=== PATIENT | female | born 1950 | race Caucasian/White ===

== ENCOUNTER → 2016-04-18 | Outpatient (CLI) | payer BC ==
[~2016-04-18] MED LIST: NITR-5 PO; UNABLE
[2016-04-18 13:08] LABS: BLOOD UREA NITROGEN 18 mg/dl (7-18); BUN/CREATININE RATIO 17.9 (10-20); CALCIUM 9.3 mg/dl (8.5-10.1); CARBON DIOXIDE 24 mmol/L (21-32); CHLORIDE 105 mmol/L (98-107); CHOLESTEROL 107 mg/dl (0-200); GLUCOSE 136 mg/dl (70-99); POTASSIUM 3.7 mmol/L (3.5-5.1); SODIUM 142 mmol/L (136-145); TRIGLYCERIDES 106 mg/dl (0-150); VERY LOW DENSITY LIPOPROT CALC 21 mg/dl
[2016-04-18 13:13] LABS: CHOLESTEROL/HDL RATIO 2.3; HDL CHOLESTEROL 46 mg/dl; LDL CHOLESTEROL CALCULATED 40 mg/dl
[2016-04-18 13:42] LABS: ESTIMATED AVERAGE GLUCOSE 140 mg/dl; HA1C FLAG Normal (Normal)
--- NOTE | 2016-04-29 07:09 | CODING QUERY MEDICAL NECESSITY ---
CQSUPPORTING DIAGNOSIS NEEDED A supporting diagnosis is required for the test/procedure performed on this patient in order for us to be reimbursed by the patient's insurance. Please provide a supporting diagnosis for the following test/procedure listed below next to the test name along with your signature. *If there is no additional diagnosis for this patient that would support the following test/procedure please document that below next to the test/procedure. Test(s)/Procedure(s) that require a supporting diagnosis: DOS 04/18/16 VITAMIN D TEST Provider Signature: Date: Thank you Nina Raphael Health Information Management Once completed, please kindly fax back to [phone] For questions please call [phone]
== END | disposition home or self-care (01) ==
LOC: C.LABPVFM 08:40
PROVIDERS: ATTEND Nurse Practitioner
DX: E11.9 Type 2 diabetes mellitus without complications (principal); E87.5 Hyperkalemia; I10 Essential (primary) hypertension; M85.80 Other specified disorders of bone density and structure, unspecified site

== ENCOUNTER → 2016-04-21 | Outpatient (CLI) | payer BC ==
[2016-04-21 13:36] LABS: RATIO 11.4 mcg/mg (0-30.0)
== END | disposition home or self-care (01) ==
LOC: C.LABPVFM 14:58
PROVIDERS: ATTEND Nurse Practitioner
DX: E11.42 Type 2 diabetes mellitus with diabetic polyneuropathy (principal)

== ENCOUNTER → 2016-10-20 | Outpatient (CLI) | payer BC ==
[2016-10-20 13:23] LABS: BLOOD UREA NITROGEN 12 mg/dl (7-18); BUN/CREATININE RATIO 14.3 (10-20); CALCIUM 8.9 mg/dl (8.5-10.1); CARBON DIOXIDE 25 mmol/L (21-32); CHLORIDE 108 mmol/L (98-107); CHOLESTEROL 103 mg/dl (0-200); CREATININE 0.82 mg/dl (0.60-1.20); GLUCOSE 133 mg/dl (70-99); POTASSIUM 3.8 mmol/L (3.5-5.1); SODIUM 140 mmol/L (136-145); TRIGLYCERIDES 107 mg/dl (0-150); VERY LOW DENSITY LIPOPROT CALC 21 mg/dl
[2016-10-20 13:27] LABS: HDL CHOLESTEROL 51 mg/dl; LDL CHOLESTEROL CALCULATED 31 mg/dl
[2016-10-20 13:50] LABS: ESTIMATED AVERAGE GLUCOSE 131 mg/dl; HA1C FLAG Normal (Normal)
== END | disposition home or self-care (01) ==
LOC: C.LABPVFM 08:55
PROVIDERS: ATTEND Nurse Practitioner
DX: E78.5 Hyperlipidemia, unspecified (principal); I10 Essential (primary) hypertension; E11.9 Type 2 diabetes mellitus without complications

== ENCOUNTER → 2017-05-03 | Outpatient (CLI) | payer BC ==
[2017-05-03 12:56] LABS: ALBUMIN 3.5 gm/dl (3.4-5.0); ALT/SGPT 23 U/L (12-78); AST/SGOT 17 U/L (15-37); BLOOD UREA NITROGEN 20 mg/dl (7-18); CALCIUM 9.1 mg/dl (8.5-10.1); CARBON DIOXIDE 26 mmol/L (21-32); CREATININE 0.93 mg/dl (0.60-1.20); GLUCOSE 113 mg/dl (70-99); SODIUM 139 mmol/L (136-145)
[2017-05-03 13:02] LABS: ALKALINE PHOSPHATASE 91 U/L (45-117); CHOLESTEROL 104 mg/dl (0-200); LDL CHOLESTEROL CALCULATED 34 mg/dl
[2017-05-03 13:29] LABS: HEMOGLOBIN A1C 6.4 % (4.5-5.6)
== END | disposition home or self-care (01) ==
LOC: C.LABPVFM 10:47
PROVIDERS: ATTEND Family Medicine
DX: I10 Essential (primary) hypertension (principal); E78.5 Hyperlipidemia, unspecified; E11.69 Type 2 diabetes mellitus with other specified complication

== ENCOUNTER 2020-11-04 08:56 | Inpatient (IN) ==
[2020-11-04] MEDS ORDERED: IRBESARTAN 150 MG TAB PO STA (09:14)
[2020-11-04] MEDS ORDERED: METOPROLOL TARTRATE 100 MG TAB PO STA (09:14)
[2020-11-04] MEDS ORDERED: SODIUM CHLORIDE 0.9% 500 ML IV SCH (09:15)
--- NOTE | 2020-11-04 09:21 | Emergency Department Note ---
Impression & Plan Weakness, Dizziness, Dislocation of left shoulder joint, Left knee pain ED Provider Note NAME: ELENITA HERRERA AGE: 69 SEX: F : 1950 ARRIVES VIA: Ambulance INFORMANT: [Patient][nursing] ED PROVIDER(S): [Felice Martinez MD] CHIEF COMPLAINT: Weakness HISTORY OF PRESENT ILLNESS: The patient is a 69-year-old female who presents to the ER with weakness. She was seen in our ED 5 days ago and work-up showed a UTI. She is currently on Bactrim. A brain CT had been done with that visit and was essentially unremarkable. The patient presents today with continued weakness. Sometimes, she has a spinning sensation. Last night, she slept in her chair in the living room because she could not make it back to her bed. The patient had a pretty bad episode of weakness and dizziness just prior to arrival, it appears her family called the ambulance. The patient did fall a few weeks ago, no fall since then. The patient denies any cough or congestion or shortness of breath. No fever, vomiting, diarrhea, no chest or abdominal pain. She has no urinary complaints. She did not take her medications this morning. The patient is not vaccinated against COVID-19, no Covid exposures. REVIEW OF SYSTEMS: See HPI for pertinent positives and negatives. A total of ten systems were reviewed and were otherwise negative. PMHx/PSHx: See Below SOCIAL HISTORY: See Below. PHYSICAL EXAM: GENERAL: Patient is in no acute distress. HEENT: No acute trauma, normocephalic atraumatic, mucous membranes moist, no nasal congestion, no scleral icterus. NECK: No stridor, no adenopathy, no meningismus, trachea is midline. LUNGS: Clear to auscultation bilaterally, no wheeze, no rhonchi, breath sounds equal. HEART: Without murmurs gallops or rubs, regular rate and rhythm. ABDOMEN: Soft, nontender, bowel sounds positive, no hernias, no peritonitis. EXTREMITIES: No cyanosis. Mild bilateral pedal edema. She has minimal movement of her left arm with a left shoulder dislocation clinically. Movement of the left shoulder does cause pain. Her left knee is flexed some, she states this is baseline as she cannot completely straighten the knee. NEUROLOGIC: Oriented x 3, no acute motor or sensory deficits, no focal weakness. No speech slur, no cerebellar dysfunction. SKIN: No rash, no jaundice, no diaphoresis. DIFFERENTIAL DIAGNOSIS: Infection, dehydration, metabolic abnormality, hypo/hyperglycemia, COVID-19, electrolyte disturbance, anemia, hypoxia, cardiac sources, intracerebral event, toxicologic issues, stroke, TIA, as well as other pathologies. EMERGENCY DEPARTMENT COURSE/PROCEDURES: ECG: Indication was weakness. The ECG shows a normal sinus rhythm with a rate of 68. There is some baseline artifact. There is no ST elevation, no PVCs. The QTc is 431. Continuous Cardiac Monitoring: An order was placed for continuous cardiac monitoring. The monitor shows a rate of 60 with normal sinus rhythm. MEDICAL DECISION MAKING: There is no leukocytosis. A very mild anemia was noted. There was a normal platelet count. Renal panel testing does not show renal failure or significant electrolyte abnormality. Lactic acid level was not elevated making sepsis less likely. There was no concerning liver enzyme elevation. The patient appeared to be in a euthyroid state. ECG shows a sinus rhythm, no acute ischemia. Cardiac enzyme testing x1 is not consistent with acute cardiac injury. Urinalysis does not show any evidence for infection. Covid testing returned negative. Chest film shows some chronic change, there was no pneumonia or CHF. Left knee film showed arthritis, there was no evidence for fracture or dislocation. The patient presents with weakness. She is no longer able to get around in her home. She was in a chair overnight because she could not make it to her bedroom. She does have a left shoulder dislocation which has been present for at least a few months. She has chronic issues with her left knee. The patient was given IV saline, she received her typical doses of p.o. irbesartan, p.o. metoprolol. She was given oral Tylenol and eventually a dose of IV hydralazine. She received IV morphine and IV Zofran. The morphine was for her knee discomfort. I did speak with case management. They were unable to get her into any type of rehab center today. No beds were available. Given the profound weakness, given the lack of ability to function at home, a hospital stay was felt warranted. I did speak with the patient and case management. The on-call hospitalist has been consulted. Of note, I did speak with orthopedics. The shoulder dislocation does not need emergent intervention. Past Med/Surg History Medical History Diabetes mellitus type 2 in obese Hypertension Routine health maintenance Surgical History History of cholecystectomy History of tubal ligation Family History Father Prostate cancer Myocardial infarction Aunt Cancer x 2 colon Aunt Hodgkin lymphoma Denies family history of Ovarian cancer Breast cancer Colorectal cancer Social History Smoking Status: Former smoker Hx Alcohol Use: No Hx Substance Use: No Preferred Language: Finnish marital status: Current Living Situation: Spouse current occupational status: retired Feels Safe at Home: Yes Childhood Exposure to Second-Hand Smoke: No caffeine: Yes Dental Care, Regularly: No Physical Activity Frequency: Does not Exercise Seatbelt Use: always Sunscreen Use: No Allergies Allergies Allergy/AdvReac Type Severity Reaction Status Date / Time No Known Drug Allergies Allergy Verified 06/10/20 11:42 Home Meds Previous Rx's Medication Instructions Recorded atorvastatin 80 mg tablet 80 mg PO DAILY #90 tab 12/11/19 metoprolol tartrate 100 mg tablet 100 mg PO BID #180 tab 04/13/20 irbesartan 150 mg tablet 150 mg PO DAILY #90 tab 05/05/20 metformin 1,000 mg tablet 1,000 mg PO BID #180 tab 05/21/20 sulfamethoxazole 800 1 tab PO Q12H #14 tab 10/30/20 mg-trimethoprim 160 mg tablet (Bactrim DS) Results & Data (ED) Vital Signs Vital Signs - 24 hr 11/04/20 08:56 11/04/20 09:05 11/04/20 09:14 Temperature 36.4 C L Temperature Source Oral Pulse Rate - Lying Pulse Rate 69 68 71 Pulse Rate from SpO2 Sensor Respiratory Rate 16 16 17 Blood Pressure - Lying Blood Pressure 195/82 H 195/82 H Blood Pressure Mean 119 119 Pulse Oximetry 99 99 Oxygen Delivery Method Room Air Room Air Sepsis Recent Fever Within 48 Hours No Sepsis New/Unexplained Change in Mental Status No Sepsis Action Taken by Nursing No Action Required 11/04/20 09:30 11/04/20 10:02 11/04/20 10:10 Temperature Temperature Source Pulse Rate - Lying Pulse Rate 64 72 72 Pulse Rate from SpO2 Sensor 72 67 Respiratory Rate 14 17 15 Blood Pressure - Lying Blood Pressure 184/120 H Blood Pressure Mean 141 Pulse Oximetry 98 97 Oxygen Delivery Method Sepsis Recent Fever Within 48 Hours Sepsis New/Unexplained Change in Mental Status Sepsis Action Taken by Nursing 11/04/20 10:20 11/04/20 10:31 11/04/20 11:14 Temperature Temperature Source Pulse Rate - Lying Pulse Rate 73 74 63 Pulse Rate from SpO2 Sensor 72 73 Respiratory Rate 17 17 27 H Blood Pressure - Lying Blood Pressure 194/100 H 144/95 H Blood Pressure Mean 131 111 Pulse Oximetry 99 100 Oxygen Delivery Method Sepsis Recent Fever Within 48 Hours Sepsis New/Unexplained Change in Mental Status Sepsis Action Taken by Nursing 11/04/20 11:31 11/04/20 11:44 11/04/20 12:02 Temperature Temperature Source Pulse Rate - Lying 63 Pulse Rate 64 57 L Pulse Rate from SpO2 Sensor Respiratory Rate 18 25 H Blood Pressure - Lying 144/95 H Blood Pressure 176/113 H Blood Pressure Mean 134 Pulse Oximetry 100 Oxygen Delivery Method Sepsis Recent Fever Within 48 Hours Sepsis New/Unexplained Change in Mental Status Sepsis Action Taken by Nursing 11/04/20 12:10 11/04/20 12:20 11/04/20 12:30 Temperature Temperature Source Pulse Rate - Lying Pulse Rate 58 L 58 L 60 Pulse Rate from SpO2 Sensor Respiratory Rate 19 22 18 Blood Pressure - Lying Blood Pressure Blood Pressure Mean Pulse Oximetry Oxygen Delivery Method Sepsis Recent Fever Within 48 Hours Sepsis New/Unexplained Change in Mental Status Sepsis Action Taken by Nursing 11/04/20 12:40 11/04/20 13:03 11/04/20 13:10 Temperature Temperature Source Pulse Rate - Lying Pulse Rate 58 L 61 63 Pulse Rate from SpO2 Sensor 60 63 Respiratory Rate 20 16 22 Blood Pressure - Lying Blood Pressure Blood Pressure Mean Pulse Oximetry 99 99 Oxygen Delivery Method Sepsis Recent Fever Within 48 Hours Sepsis New/Unexplained Change in Mental Status Sepsis Action Taken by Nursing 11/04/20 13:20 11/04/20 13:30 11/04/20 13:40 Temperature Temperature Source Pulse Rate - Lying Pulse Rate 64 65 63 Pulse Rate from SpO2 Sensor 64 65 Respiratory Rate 25 H 25 H 25 H Blood Pressure - Lying Blood Pressure Blood Pressure Mean Pulse Oximetry 100 100 Oxygen Delivery Method Sepsis Recent Fever Within 48 Hours Sepsis New/Unexplained Change in Mental Status Sepsis Action Taken by Nursing 11/04/20 13:50 11/04/20 14:00 11/04/20 14:10 Temperature Temperature Source Pulse Rate - Lying Pulse Rate 64 62 57 L Pulse Rate from SpO2 Sensor 64 61 Respiratory Rate 25 H 21 18 Blood Pressure - Lying Blood Pressure Blood Pressure Mean Pulse Oximetry 95 100 Oxygen Delivery Method Sepsis Recent Fever Within 48 Hours Sepsis New/Unexplained Change in Mental Status Sepsis Action Taken by Nursing 11/04/20 14:20 11/04/20 14:30 11/04/20 15:01 Temperature Temperature Source Pulse Rate - Lying Pulse Rate 61 60 67 Pulse Rate from SpO2 Sensor Respiratory Rate 13 13 19 Blood Pressure - Lying Blood Pressure 154/63 H 153/70 H Blood Pressure Mean 93 97 Pulse Oximetry Oxygen Delivery Method Sepsis Recent Fever Within 48 Hours Sepsis New/Unexplained Change in Mental Status Sepsis Action Taken by Retirement Medications Current Medication List: was personally reviewed by me Laboratory Data Attestation: I reviewed the patient's lab results. Result diagrams: 11/04/20 09:47 11/04/20 09:47 Lab Results 11/04/20 11/04/20 11/04/20 Range/Units 09:29 09:29 09:47 WBC 5.02 (4.8-10.8) K/uL RBC 3.52 L (4.2-5.4) M/uL Hgb 11.4 L (12.0-16.0) g/dL Hct 33.8 L (37-47) % MCV 96.0 (80-100) fL MCH 32.4 (25-34) pg MCHC 33.7 (32-36) g/dL RDW Std Deviation 46.7 H (36.4-46.3) fL RDW Coeff of Lakhwinder 13.5 (11.5-14.5) % Plt Count 173 (130-400) K/uL MPV 11.0 H (7.4-10.4) fL Immature Gran % (Auto) 0.2 % Neut % (Auto) 66.7 % Lymph % (Auto) 22.3 % [place] % (Auto) 7.4 % Eos % (Auto) 2.8 % Baso % (Auto) 0.6 % Neut # (Auto) 3.35 (1.4-6.5) K/uL Lymph # (Auto) 1.12 L (1.2-3.4) K/uL [place] # (Auto) 0.37 (0.11-0.59) K/uL Eos # (Auto) 0.14 (0-0.5) K/uL Baso # (Auto) 0.03 (0-0.2) K/uL Immature Gran # (Auto) 0.01 (0.00-0.02) K/uL Sodium (136-145) mmol/L Potassium (3.5-5.1) mmol/L Chloride (98-107) mmol/L Carbon Dioxide (21-32) mmol/L Anion Gap (3-11) BUN (7-18) mg/dl Creatinine (0.6-1.2) mg/dl Est Cr Clr Drug Dosing ml/min Est GFR ( Amer) ml/min Est GFR (Non-Af Amer) ml/min BUN/Creatinine Ratio (10-20) Glucose (70-99) mg/dl Lactate (0.4-2.0) mmol/L Calcium (8.5-10.1) mg/dl Phosphorus (2.5-4.9) mg/dl Magnesium (1.8-2.4) mg/dl Total Bilirubin (0.2-1) mg/dl AST (15-37) U/L ALT (12-78) U/L Alkaline Phosphatase (45-117) U/L Troponin I (0-0.045) ng/ml Total Protein (6.4-8.2) gm/dl Albumin (3.4-5.0) gm/dl Globulin (2.5-4.0) gm/dl Albumin/Globulin Ratio (0.9-2) TSH (0.300-4.500) uIu/ml Urine Color Urine Appearance (Clear) Urine pH (4.5-7.5) Ur Specific [place] (1.000-1.030) Urine Protein (Negative) Urine Glucose (UA) (Negative) Urine Ketones (Negative) Urine Blood (Negative) Urine Nitrite (Negative) Urine Bilirubin (Negative) Urine Urobilinogen (Negative) Ur Leukocyte Esterase (Negative) COVID-19 Eval Order Covid19 at [facility] SARS-CoV-2 (PCR) NEGATIVE (Negative) 11/04/20 11/04/20 11/04/20 Range/Units 09:47 09:47 10:14 WBC (4.8-10.8) K/uL RBC (4.2-5.4) M/uL Hgb (12.0-16.0) g/dL Hct (37-47) % MCV (80-100) fL MCH (25-34) pg MCHC (32-36) g/dL RDW Std Deviation (36.4-46.3) fL RDW Coeff of Lakhwinder (11.5-14.5) % Plt Count (130-400) K/uL MPV (7.4-10.4) fL Immature Gran % (Auto) % Neut % (Auto) % Lymph % (Auto) % [place] % (Auto) % Eos % (Auto) % Baso % (Auto) % Neut # (Auto) (1.4-6.5) K/uL Lymph # (Auto) (1.2-3.4) K/uL [place] # (Auto) (0.11-0.59) K/uL Eos # (Auto) (0-0.5) K/uL Baso # (Auto) (0-0.2) K/uL Immature Gran # (Auto) (0.00-0.02) K/uL Sodium 142 (136-145) mmol/L Potassium 4.2 (3.5-5.1) mmol/L Chloride 111 H (98-107) mmol/L Carbon Dioxide 23 (21-32) mmol/L Anion Gap 8.0 (3-11) BUN 23 H (7-18) mg/dl Creatinine 1.15 (0.6-1.2) mg/dl Est Cr Clr Drug Dosing 59.3 ml/min Est GFR ( Amer) 55.4 ml/min Est GFR (Non-Af Amer) 47.8 ml/min BUN/Creatinine Ratio 19.7 (10-20) Glucose 160 H (70-99) mg/dl Lactate 1.3 (0.4-2.0) mmol/L Calcium 8.9 (8.5-10.1) mg/dl Phosphorus 3.2 (2.5-4.9) mg/dl Magnesium 2.1 (1.8-2.4) mg/dl Total Bilirubin 0.6 (0.2-1) mg/dl AST 16 (15-37) U/L ALT 19 (12-78) U/L Alkaline Phosphatase 125 H (45-117) U/L Troponin I < 0.015 (0-0.045) ng/ml Total Protein 6.9 (6.4-8.2) gm/dl Albumin 3.5 (3.4-5.0) gm/dl Globulin 3.4 (2.5-4.0) gm/dl Albumin/Globulin Ratio 1.0 (0.9-2) TSH 1.620 (0.300-4.500) uIu/ml Urine Color Yellow Urine Appearance Clear (Clear) Urine pH 6.0 (4.5-7.5) Ur Specific [place] 1.022 (1.000-1.030) Urine Protein Negative (Negative) Urine Glucose (UA) Negative (Negative) Urine Ketones Negative (Negative) Urine Blood Negative (Negative) Urine Nitrite Negative (Negative) Urine Bilirubin Negative (Negative) Urine Urobilinogen Negative (Negative) Ur Leukocyte Esterase Negative (Negative) COVID-19 Eval Order SARS-CoV-2 (PCR) (Negative) Administered Medications Morphine Sulfate (Morphine Sulfate 4 Mg/Ml 1 Ml Carp\Vial) 4 mg IV Q15M PRN PRN Reason: Pain Stop: 11/18/20 13:34 Last Admin: 11/04/20 13:46 Dose: 4 mg Documented by: [id number] Discontinued Medications Acetaminophen (Acetaminophen 500 Mg Tab) 1,000 mg PO NOW STA Stop: 11/04/20 10:39 Last Admin: 11/04/20 10:45 Dose: 1,000 mg Documented by: [id number] Hydralazine HCl (Hydralazine Hcl 20 Mg/Ml Vial) 10 mg IV NOW STA Stop: 11/04/20 12:15 Last Admin: 11/04/20 12:43 Dose: 10 mg Documented by: [id number] Sodium Chloride (Nss) 500 mls @ 999 mls/hr IV .Q31M SARINA Stop: 11/04/20 09:45 Last Infusion: 11/04/20 10:27 Dose: 0 mls/hr Documented by: [id number] Admin: 11/04/20 09:56 Dose: 999 mls/hr Documented by: [id number] Irbesartan (Irbesartan 150 Mg Tab) 150 mg PO NOW STA Stop: 11/04/20 09:15 Last Admin: 11/04/20 10:24 Dose: 150 mg Documented by: [id number] Metoprolol Tartrate (Metoprolol Tartrate 100 Mg Tab) 100 mg PO NOW STA Stop: 11/04/20 09:15 Last Admin: 11/04/20 10:23 Dose: 100 mg Documented by: [id number] Ondansetron HCl (Ondansetron Inj 2 Mg/Ml 2 Ml Vial) 4 mg IV NOW STA Stop: 11/04/20 13:36 Last Admin: 11/04/20 13:46 Dose: 4 mg Documented by: [id number] Imaging Data Radiologist's Impression: Chest X-Ray 11/04/20 09:14 SINGLE VIEW CHEST CLINICAL HISTORY: Generalized weakness. FINDINGS: An AP, portable, upright chest radiograph is compared to study dated 10/30/2020 and correlated with chest CT dated 02/20/2006. The heart is enlarged. The pulmonary vasculature is noncongested. Chronic interstitial thickening is similar to previous. The lungs and pleural spaces are clear. No pneumothorax is seen. The skeletal structures are osteopenic. The bony thorax is grossly intact. Advanced arthritic change is noted in the shoulders. IMPRESSION: Cardiomegaly with no active disease in the chest. ACT 112: Negative or not required by law. Electronically signed by: Felice Maldonado M.D. 11/04/2020 9:44 AM Knee X-Ray 11/04/20 14:06 XR knee LT 1 or 2V routine CLINICAL HISTORY: progressive pain recent fall COMPARISON: None FINDINGS: There is mild valgus deformity of the left knee. No acute fracture is noted. There is no significant joint effusion. Marked tricompartmental ost eoarthritis of the left knee is noted with joint space narrowing and osteophytosis, most pronounced within the medial and patellofemoral compartments. IMPRESSION: 1. No acute fracture or joint effusion of the left knee. 2. Severe tricompartmental osteoarthritis of the left knee. ACT 112: Negative or not required by law. Electronically signed by: Braydon Gregory M.D. 11/04/2020 2:56 PM Discharge Plan Visit Data Chief Complaint: Weakness ED Provider: Felice Martinez Discharge Problem: Weakness, Dizziness, Dislocation of left shoulder joint, Left knee pain Patient Disposition: Admitted As Inpatient Condition: Fair Forms Stand Alone Forms: [facility] [place] [facility] [employer] Prescriptions Prescriptions: No Action atorvastatin 80 mg tablet 80 mg PO DAILY Qty: 90 RF: 1 metoprolol tartrate 100 mg tablet 100 mg PO BID Qty: 180 RF: 1 irbesartan 150 mg tablet 150 mg PO DAILY Qty: 90 RF: 1 metformin 1,000 mg tablet 1,000 mg PO BID Qty: 180 RF: 1 sulfamethoxazole-trimethoprim [Bactrim DS] 800-160 mg tablet 1 tab PO Q12H Qty: 14 RF: 0 Referrals Referrals: PCP,NO [Primary Care Provider] -
--- NOTE | 2020-11-04 09:46 | XRay Report ---
SINGLE VIEW CHEST CLINICAL HISTORY: Generalized weakness. FINDINGS: An AP, portable, upright chest radiograph is compared to study dated 10/30/2020 and correlat ed with chest CT dated 02/20/2006. The heart is enlarged. The pulmonary vasculature is noncongested. Ch ronic interstitial thickening is similar to previous. The lungs and pleural spaces are clear. No pneu mothorax is seen. The skeletal structures are osteopenic. The bony thorax is grossly intact. Advanced arthritic change is noted in the shoulders. IMPRESSION: Cardiomegaly with no active disease in the chest. ACT 112: Negative or not required by law. Electronically signed by: Felice Maldonado M.D. 11/04/2020 9:44 AM
[2020-11-04 09:59] LABS: Basophils # (auto) 0.03 K/uL (0-0.2); Basophils % (auto) 0.6 %; Eosinophils # (auto) 0.14 K/uL (0-0.5); Eosinophils % (auto) 2.8 %; Hematocrit (blood only) 33.8 % (37-47); Hemoglobin 11.4 g/dL (12.0-16.0); Immature Granulocytes # (auto) 0.01 K/uL (0.00-0.02); Immature Granulocytes % (auto) 0.2 %; Lymphocytes # (auto) 1.12 K/uL (1.2-3.4); Lymphocytes % (auto) 22.3 %; Mean Corpuscular Hemoglobin 32.4 pg (25-34); Mean Corpuscular Hgb Conc 33.7 g/dL (32-36); Monocytes # (auto) 0.37 K/uL (0.11-0.59); Monocytes % (auto) 7.4 %; Neutrophils # (auto) 3.35 K/uL (1.4-6.5); Neutrophils % (auto) 66.7 %; Platelet Count 173 K/uL (130-400); RDW Coefficient of Variation 13.5 % (11.5-14.5); RDW Standard Deviation 46.7 fL (36.4-46.3); Red Blood Count 3.52 M/uL (4.2-5.4); White Blood Count 5.02 K/uL (4.8-10.8)
[2020-11-04 10:22] LABS: Albumin Level 3.5 gm/dl (3.4-5.0); Aspartate Aminotransferase 16 U/L (15-37); BUN Creatinine Ratio 19.7 (10-20); Blood Urea Nitrogen 23 mg/dl (7-18); Calcium 8.9 mg/dl (8.5-10.1); Carbon Dioxide 23 mmol/L (21-32); Chloride 111 mmol/L (98-107); Creatinine Clr Calc Pharmacy 59.3 ml/min; Est GFR (African American) 55.4 ml/min; Est GFR (Non-African American) 47.8 ml/min; Glucose 160 mg/dl (70-99); Magnesium 2.1 mg/dl (1.8-2.4); Potassium 4.2 mmol/L (3.5-5.1); Sodium 142 mmol/L (136-145)
[2020-11-04 10:33] LABS: Alanine Aminotransferase 19 U/L (12-78); Alkaline Phosphatase 125 U/L (45-117); Bilirubin,Total 0.6 mg/dl (0.2-1); Globulin 3.4 gm/dl (2.5-4.0); Phosphorus 3.2 mg/dl (2.5-4.9); Total Protein 6.9 gm/dl (6.4-8.2); Troponin I < 0.015 ng/ml (0-0.045)
[2020-11-04 10:34] LABS: Appearance Urine Clear (Clear); Bilirubin Urine Negative (Negative); Blood Urine Negative (Negative); Color Urine Yellow; Glucose Urine UA Negative (Negative); Ketones Urine Negative (Negative); Leukocyte Esterase Urine Negative (Negative); Nitrite Urine Negative (Negative); Protein Urine Negative (Negative); Specific Gravity Urine 1.022 (1.000-1.030); Urobilinogen Urine Negative (Negative)
[2020-11-04] MEDS ORDERED: ACETAMINOPHEN 500 MG TAB PO STA (10:38)
[2020-11-04] MEDS ORDERED: hydrALAZINE HCL 20 MG/ML VIAL IV STA (12:14)
[2020-11-04] MEDS ORDERED: ONDANSETRON INJ 2 MG/ML 2 ML VIAL IV STA (13:35)
[2020-11-04] MEDS ORDERED: MoRPHine SULFATE 4 MG/ML 1 ML CARP\\VIAL IV PRN (13:35)
--- NOTE | 2020-11-04 13:42 | History & Physical Report ---
Date of Service November 04, 2020 Assessment & Plan (1) Dizziness: Plan: Patient with postural dizziness and decreased strength and ambulation. Currently no obvious metabolic sources. Certainly could be medication side effect from her Bactrim. This will be stopped. CT scan of her brain is unremarkable from her visit on October 30 this was not repeated today she has no focal neurological signs Emergency department a TSH is normal lactic acid unremarkable troponins unremarkable electrolytes are in good repair EKG shows normal sinus rhythm any acute ST or T wave changes chest x-ray is unremarkable We will check an a.m. cortisol and a Lyme titer We will have PT OT evaluation survey cultures for causes of metabolic encephalopathy which is not apparently present currently (2) UTI (urinary tract infection): Plan: Treated for 5 days with Bactrim for pansensitive E. coli we will stop this medication in case her dizziness is a side effect of the Bactrim (3) Diabetes mellitus type 2 in obese: Plan: Patient typically takes Metformin we will check an A1c we will continue her Metformin and offer her a carbohydrate conservative diet (4) Hypertension: Plan: Currently blood pressure is elevated we will check orthostatics in the morning, we will continue her metoprolol however reduce dose slightly because of bradycardia but continue irbesartan or substitute. She is also on atorvastatin for secondary risk prevention she will be offered hydralazine as needed and may need attention to her antihypertensive regiment (5) DVT prophylaxis: Plan: SCDs and early ambulation Patient is a full code History of Present Illness Primary Care Provider: NO PCP 69-year-old female brought into the ED with progressive weakness at home. She was seen in emergency department approximately 5 days ago treated for urinary tract infection with Bactrim. She represents with continued weakness unable to get out of chair plus minus some vertigo symptoms. Initially the family had wished for her to have rehab evaluation. However she is found to be too weak and also has a looks to be chronically dislocated left shoulder. Her urinalysis today shows negative nitrates negative leukocyte esterase, her urine did grow E. coli which is pansensitive on October 30. Patient describes her dizziness as a presyncopal feeling definitely not vertiginous feeling. However it has been happening at rest when she is sitting still not with position changes. She has had this presyncopal feeling in her youth. Of note she is slightly bradycardic with her beta-jacob and this may be related to that. We are reducing doses and checking orthostatics in the morning Allergies Allergy/AdvReac Type Severity Reaction Status Date / Time No Known Drug Allergies Allergy Verified 06/10/20 11:42 Home Medications Medication Instructions Recorded Confirmed Type atorvastatin 80 mg tablet 80 mg PO DAILY #90 tab 12/11/19 11/04/20 Rx metoprolol tartrate 100 mg tablet 100 mg PO BID #180 tab 04/13/20 11/04/20 Rx irbesartan 150 mg tablet 150 mg PO DAILY #90 tab 05/05/20 11/04/20 Rx metformin 1,000 mg tablet 1,000 mg PO BID #180 tab 05/21/20 11/04/20 Rx sulfamethoxazole 800 1 tab PO Q12H #14 tab 10/30/20 11/04/20 Rx mg-trimethoprim 160 mg tablet (Bactrim DS) Past Med/Surg History Medical History (Updated 11/04/20 @ 13:38 by Tres Catalan MD) Diabetes mellitus type 2 in obese Hypertension Routine health maintenance Surgical History History of cholecystectomy History of tubal ligation Family History Father Prostate cancer Myocardial infarction Aunt Cancer x 2 colon Aunt Hodgkin lymphoma Denies family history of Ovarian cancer Breast cancer Colorectal cancer Social History Smoking Status: Former smoker Hx Alcohol Use: No Hx Substance Use: No Preferred Language: Scottish marital status: Current Living Situation: Spouse current occupational status: retired Feels Safe at Home: Yes Childhood Exposure to Second-Hand Smoke: No caffeine: Yes Dental Care, Regularly: No Physical Activity Frequency: Does not Exercise Seatbelt Use: always Sunscreen Use: No Review of Systems Review of Systems: Mild distress and fatigue no headache, no visual changes no speech or swallowing issues no chest pain, pressure or palpitations no shortness of breath, cough or wheezes no abdominal pain, nausea or vomiting, diarrhea or constipation no dysuria, hematuria or frequency Patient has left knee pain more than right been progress over the last few days. She also some left shoulder pain which began after a fall 2 to 3 weeks ago. She is noted to have dislocated shoulder on admission chest x-ray no back pain, CVA tenderness or radicular pain no bruising, bleeding or rashes no focal signs of weakness or numbness or altered sensation no complaints of anxiety or depression.. Physical Exam Physical Exam: The patient appeared well nourished and normally developed. Vital signs as documented. Head exam is normocephalic atraumatic Neck is without JVD, thyromegaly, or carotid bruits. Lungs are clear to auscultation, no focal loss of breath sounds Cardiac exam, Rhythm is regular.. No murmurs, rubs or gallops. Abdominal exam reveals normal bowel sounds, soft non tender, no masses Patient has crepitance in her left shoulder however I can externally rotated and internally rotated she does have some pain when she lifts it above 90 degrees her knees do not have any effusions on them there are small abrasions. Extremities are nonedematous and both pedal pulses are present Neurologic exam is alert and oriented, no focal loss of strength or sensation she can lift her legs off the bed but she is very weak this may have to do with her morbid obesity BMI 41 Skin is without bruises or rashes Psychologically is without concerns for anxiety or depression Results & Data Results & Data ([facility]) Vital Signs (Past 12 Hours) Vital Signs Temp Pulse Resp BP Pulse Ox 11/04/20 12:30 60 18 11/04/20 12:20 58 L 22 11/04/20 12:10 58 L 19 11/04/20 12:02 57 L 25 H 11/04/20 11:44 100 11/04/20 11:31 64 18 176/113 H 11/04/20 11:14 63 27 H 144/95 H 11/04/20 10:31 74 17 194/100 H 100 11/04/20 10:20 73 17 99 11/04/20 10:10 72 15 97 11/04/20 10:02 72 17 98 11/04/20 09:30 64 14 184/120 H 11/04/20 09:14 71 17 99 11/04/20 09:05 68 16 195/82 H 11/04/20 08:56 97.5 F L 69 16 195/82 H 99 PG Care Time/CCT Total # of Minutes Spent Total Time Spent with Patient: Total time spent is greater than 50% in coordination of care (as documented) at patient's floor/unit and/or counseling patient: Coding Level of Care Code INT OBSERVATION CARE 50M LVL 2 Diagnoses Dizziness R42 UTI (urinary tract infection) N39.0 Diabetes mellitus type 2 in obese E11.69; E66.9 Hypertension I10 DVT prophylaxis Z29.9
--- NOTE | 2020-11-04 14:57 | XRay Report ---
XR knee LT 1 or 2V routine CLINICAL HISTORY: progressive pain recent fall COMPARISON: None FINDINGS: There is mild valgus deformity of the left knee. No acute fracture is noted. There is no s ignificant joint effusion. Marked tricompartmental osteoarthritis of the left knee is noted with join t space narrowing and osteophytosis, most pronounced within the medial and patellofemoral compartment s. IMPRESSION: 1. No acute fracture or joint effusion of the left knee. 2. Severe tricompartmental osteoarthritis of the left knee. ACT 112: Negative or not required by law. Electronically signed by: Braydon Gregory M.D. 11/04/2020 2:56 PM
--- NOTE | 2020-11-04 15:53 | Electrocardiogram Report ---
Test Reason : Blood Pressure : / mmHG Vent. Rate : 068 BPM Atrial Rate : 068 BPM P-R Int : 176 ms QRS Dur : 088 ms QT Int : 406 ms P-R-T Axes : 047 -03 022 degrees QTc Int : 431 ms Normal sinus rhythm Normal ECG When compared with ECG of 30-OCT-2020 12:14, Premature atrial complexes are no longer Present Confirmed by Shahid Schaffer ([id number]) on 11/04/2020 3:52:34 PM Referred By: REFERRED SELF Confirmed By:Shahid Schaffer
[2020-11-04] MEDS ORDERED: GLUCOSE 10 TABS/TUBE PO PRN (17:28)
[2020-11-04] MEDS ORDERED: ONDANSETRON INJ 2 MG/ML 2 ML VIAL IV PRN (17:28)
[2020-11-04] MEDS ORDERED: DEXTROSE 50% 50 ML SYRINGE IV PRN (17:28)
[2020-11-04] MEDS ORDERED: CARBOHYDRATES FOR HYPOGLYCEMIA PO PRN (17:28)
[2020-11-04] MEDS ORDERED: hydrALAZINE HCL 20 MG/ML VIAL IV PRN (17:28)
[2020-11-04] MEDS ORDERED: GLUCOSE 40% GEL 15 GM TUBE PO PRN (17:28)
[2020-11-04] MEDS ORDERED: GLUCAGON FOR INJ 1 MG VIAL SQ PRN (17:28)
[2020-11-04] MEDS ORDERED: ALUMINUM/MAGNESIUM SUSP 30 ML UDC PO PRN (17:28)
[2020-11-04] MEDS ORDERED: hydrALAZINE HCL 20 MG/ML VIAL ONE (17:32)
[2020-11-04] MEDS ORDERED: LORazepam 0.5 MG/1 ML VIAL IV PRN (17:59)
[2020-11-04] MEDS ORDERED: LORazepam 2 MG/ML VIAL (IM USE) IM STA (18:04)
[2020-11-04] MEDS: INSULIN ASPART 100 UNITS/ML 3 ML PEN SC SCH ×2 (20:19→21:59)
[2020-11-04] MEDS: metFORMIN HCL 500 MG TAB PO SCH (20:20)
[2020-11-04] MEDS ORDERED: MICONAZOLE NITRATE POWDER 43 GM EXT PRN (20:21)
[2020-11-04] MEDS: DICLOFENAC SOD 1% GEL 100 GM TUBE EXT SCH (22:00)
[2020-11-04] MEDS: METOPROLOL TARTRATE 50 MG TAB PO SCH (22:01)
[2020-11-05] MEDS: IRBESARTAN 150 MG TAB PO SCH (07:49)
[2020-11-05] MEDS: METOPROLOL TARTRATE 50 MG TAB PO SCH ×2 (07:49→19:45)
[2020-11-05] MEDS: metFORMIN HCL 500 MG TAB PO SCH ×2 (07:49→17:15)
[2020-11-05] MEDS: ATORVASTATIN 40 MG TAB PO SCH (07:49)
[2020-11-05] MEDS: DICLOFENAC SOD 1% GEL 100 GM TUBE EXT SCH ×2 (07:52→19:46)
[2020-11-05 07:58] LABS: Estimated Average Glucose 137 mg/dl; Hemoglobin A1C 6.4 % (4.5-5.6)
[2020-11-05 08:08] LABS: BUN Creatinine Ratio 19.4 (10-20); Calcium 9.1 mg/dl (8.5-10.1); Creatinine Clr Calc Pharmacy 70.4 ml/min; Est GFR (African American) 69.8 ml/min; Est GFR (Non-African American) 60.3 ml/min
[2020-11-05 08:28] LABS: Lyme Ab IgG w/WB Rflx Negative (Negative); Lyme Ab IgM w/WB Rflx Negative (Negative)
[2020-11-05] MEDS: INSULIN ASPART 100 UNITS/ML 3 ML PEN SC SCH ×4 (09:22→19:44)
[2020-11-05] MEDS: LORazepam 0.5 MG TAB PO PRN (19:45)
--- NOTE | 2020-11-05 20:56 | Hospitalist Progress Note ---
Date of Service November 05, 2020 Assessment & Plan (1) Dizziness: Plan: Patient with postural dizziness and decreased strength and ambulation. Currently no obvious metabolic sources. Certainly could be medication side effect from her Bactrim. This will be stopped. CT scan of her brain is unremarkable from her visit on October 30 this was not repeated today she has no focal neurological signs Emergency department a TSH is normal lactic acid unremarkable troponins unremarkable electrolytes are in good repair EKG shows normal sinus rhythm any acute ST or T wave changes chest x-ray is unremarkable We will check an a.m. cortisol and a Lyme titer We will have PT OT evaluation survey cultures for causes of metabolic encephalopathy which is not apparently present currently Patient appears less dizzy today, however she is confused. This may be a remnant of metabolic encephalopathy as she had a UTI. will continue to monitor (2) UTI (urinary tract infection): Plan: Treated for 5 days with Bactrim for pansensitive E. coli we will stop this medication in case her dizziness is a side effect of the Bactrim (3) Diabetes mellitus type 2 in obese: Plan: Patient typically takes Metformin we will check an A1c we will continue her Metformin and offer her a carbohydrate conservative diet (4) Hypertension: Plan: Currently blood pressure is elevated we will check orthostatics in the morning, we will continue her metoprolol however reduce dose slightly because of bradycardia but continue irbesartan or substitute. She is also on atorvastatin for secondary risk prevention she will be offered hydralazine as needed and may need attention to her antihypertensive regiment (5) DVT prophylaxis: Plan: SCDs and early ambulation Patient is a full code Admission and Anticipated Discharge Date Admission Date: November 05, 2020 Subjective Patient appears to be confused. Patient reports that she remains dizzy, however, it is not as severe as yesterday. Review of Systems Review of Systems: All systems reviewed & are unremarkable except as noted in HPI & below Physical Exam Physical Exam: The patient appeared well nourished and normally developed. Vital signs as documented. Head exam is normocephalic atraumatic Neck is without JVD, thyromegaly, or carotid bruits. Lungs are clear to auscultation, no focal loss of breath sounds Cardiac exam, Rhythm is regular.. No murmurs, rubs or gallops. Abdominal exam reveals normal bowel sounds, soft non tender, no masses Patient has crepitance in her left shoulder however I can externally rotated and internally rotated she does have some pain when she lifts it above 90 degrees her knees do not have any effusions on them there are small abrasions. Extremities are nonedematous and both pedal pulses are present Neurologic exam is alert and oriented, no focal loss of strength or sensation she can lift her legs off the bed but she is very weak this may have to do with her morbid obesity BMI 41 Skin is without bruises or rashes Psychologically is without concerns for anxiety or depression Results & Data Results & Data ([facility]) Vital Signs (Past 12 Hours) Vital Signs Temp Pulse Resp BP BP Pulse Ox 11/05/20 19:08 36.9 C 76 20 180/94 H 97 11/05/20 14:57 37.3 C 82 20 165/76 H 95 11/05/20 10:56 36.8 C 64 18 159/71 H 95 PG Care Time/CCT Total # of Minutes Spent Total Time Spent with Patient: Total time spent is greater than 50% in coordination of care (as documented) at patient's floor/unit and/or counseling patient: Coding Level of Care Code 74924 Subseq Hosp Care Lvl 2 Diagnoses Dizziness R42 UTI (urinary tract infection) N39.0 Diabetes mellitus type 2 in obese E11.69; E66.9 Hypertension I10 DVT prophylaxis Z29.9
[2020-11-05] MEDS ORDERED: LORazepam 0.5 MG/1 ML VIAL IV STA (23:48)
[2020-11-05] MEDS ORDERED: HALOPERIDOL LACTATE 5 MG/ML 1 ML VIAL IM STA (23:49)
--- NOTE | 2020-11-06 00:12 | Communication Note ---
Date of Service: November 06, 2020 Subjective: Nursing notified me that the patient was aggressive with staff, agitated and confused. I talked to the patient attempted to orient her, she was attempting to get out of her bed. Objective: General: not oriented to place or time A/P: 69 yo F becoming progressively more aggressive and trying to get out of her bed putting herself at risk of fall with prior episode one night prior of aggressive behavior in the ER. - ordered 0.5 mg Ativan in a addition to PRN doses - added 2.5 mg IM Haldol - continue to monitor overnight
[2020-11-06] MEDS: METOPROLOL TARTRATE 50 MG TAB PO SCH ×2 (07:53→21:53)
[2020-11-06] MEDS: metFORMIN HCL 500 MG TAB PO SCH ×2 (07:53→16:28)
[2020-11-06] MEDS: ATORVASTATIN 40 MG TAB PO SCH (07:53)
[2020-11-06] MEDS: IRBESARTAN 150 MG TAB PO SCH (07:53)
[2020-11-06] MEDS: INSULIN ASPART 100 UNITS/ML 3 ML PEN SC SCH ×4 (07:58→21:54)
[2020-11-06] MEDS: DICLOFENAC SOD 1% GEL 100 GM TUBE EXT SCH ×2 (07:58→21:53)
[2020-11-06 08:27] LABS: Hemoglobin 12.7 g/dL (12.0-16.0); Mean Corpuscular Hemoglobin 32.9 pg (25-34); Mean Corpuscular Hgb Conc 33.4 g/dL (32-36); Mean Corpuscular Volume 98.4 fL (80-100); Mean Platelet Volume 11.6 fL (7.4-10.4); Platelet Count 205 K/uL (130-400); RDW Coefficient of Variation 13.4 % (11.5-14.5); Red Blood Count 3.86 M/uL (4.2-5.4); White Blood Count 9.34 K/uL (4.8-10.8)
[2020-11-06 08:57] LABS: BUN Creatinine Ratio 17.2 (10-20); Calcium 9.3 mg/dl (8.5-10.1); Creatinine Clr Calc Pharmacy 64.2 ml/min; Est GFR (African American) 61.9 ml/min; Est GFR (Non-African American) 53.4 ml/min; Magnesium 1.5 mg/dl (1.8-2.4); Potassium 3.6 mmol/L (3.5-5.1)
[2020-11-06] MEDS ORDERED: amLODIPine BESYLATE 5 MG TAB PO ONE (16:00)
[2020-11-06] MEDS ORDERED: OLANZAPINE 2.5 MG TAB PO ONE (18:00)
--- NOTE | 2020-11-06 20:42 | Hospitalist Progress Note ---
Date of Service November 06, 2020 Assessment & Plan (1) Dizziness: Plan: Patient with postural dizziness and decreased strength and ambulation. Currently no obvious metabolic sources. Certainly could be medication side effect from her Bactrim. This will be stopped. CT scan of her brain is unremarkable from her visit on October 30 this was not repeated today she has no focal neurological signs Emergency department a TSH is normal lactic acid unremarkable troponins unremarkable electrolytes are in good repair EKG shows normal sinus rhythm any acute ST or T wave changes chest x-ray is unremarkable We will check an a.m. cortisol and a Lyme titer We will have PT OT evaluation survey cultures for causes of metabolic encephalopathy which is not apparently present currently Patient denies dizziness however she is confused. This may be a remnant of metabolic encephalopathy as she had a UTI. ordered olanzapine and will monitor. (2) UTI (urinary tract infection): Plan: Treated for 5 days with Bactrim for pansensitive E. coli we will stop this medication in case her dizziness is a side effect of the Bactrim (3) Diabetes mellitus type 2 in obese: Plan: Patient typically takes Metformin we will check an A1c we will continue her Metformin and offer her a carbohydrate conservative diet (4) Hypertension: Plan: Currently blood pressure is elevated we will check orthostatics in the morning, we will continue her metoprolol however reduce dose slightly because of bradycardia but continue irbesartan or substitute. She is also on atorvastatin for secondary risk prevention she will be offered hydralazine as needed and may need attention to her antihypertensive regiment (5) DVT prophylaxis: Plan: SCDs and early ambulation Patient is a full code Admission and Anticipated Discharge Date Admission Date: November 05, 2020 Subjective Patient is confused. Review of Systems Review of Systems: Unobtainable due to cognitive status Physical Exam Physical Exam: The patient appeared well nourished and normally developed. Vital signs as documented. Head exam is normocephalic atraumatic Neck is without JVD, thyromegaly, or carotid bruits. Lungs are clear to auscultation, no focal loss of breath sounds Cardiac exam, Rhythm is regular.. No murmurs, rubs or gallops. Abdominal exam reveals normal bowel sounds, soft non tender, no masses Patient has crepitance in her left shoulder however I can externally rotated and internally rotated she does have some pain when she lifts it above 90 degrees her knees do not have any effusions on them there are small abrasions. Extremities are nonedematous and both pedal pulses are present Neurologic exam is alert and oriented, no focal loss of strength or sensation she can lift her legs off the bed but she is very weak this may have to do with her morbid obesity BMI 41 Skin is without bruises or rashes Psychologically is without concerns for anxiety or depression Results & Data Results & [facility] ([facility]) Vital Signs (Past 12 Hours) Vital Signs Temp Pulse Resp BP BP Pulse Ox 11/06/20 15:19 37.2 C 105 H 18 191/96 H 166/91 H 97 11/06/20 11:58 37.3 C 96 H 20 166/88 H 93 PG Care Time/CCT Total # of Minutes Spent Total Time Spent with Patient: Total time spent is greater than 50% in coordination of care (as documented) at patient's floor/unit and/or counseling patient: Coding Level of Care Code 47833 Subseq Hosp Care Lvl 2 Diagnoses Dizziness R42 UTI (urinary tract infection) N39.0 Diabetes mellitus type 2 in obese E11.69; E66.9 Hypertension I10 DVT prophylaxis Z29.9 Time Spent (min) 36
[2020-11-07] MEDS: ACETAMINOPHEN 325 MG TAB PO PRN (07:50)
[2020-11-07] MEDS: METOPROLOL TARTRATE 50 MG TAB PO SCH ×2 (07:50→20:51)
[2020-11-07] MEDS: ATORVASTATIN 40 MG TAB PO SCH (07:51)
[2020-11-07] MEDS: IRBESARTAN 150 MG TAB PO SCH (07:51)
[2020-11-07] MEDS: DICLOFENAC SOD 1% GEL 100 GM TUBE EXT SCH ×2 (07:51→20:51)
[2020-11-07] MEDS: metFORMIN HCL 500 MG TAB PO SCH ×2 (07:51→17:16)
[2020-11-07 09:20] LABS: Creatinine Clr Calc Pharmacy 75.7 ml/min; Est GFR (African American) 75.6 ml/min; Est GFR (Non-African American) 65.2 ml/min; Magnesium 1.7 mg/dl (1.8-2.4); Potassium 3.4 mmol/L (3.5-5.1)
[2020-11-07] MEDS: INSULIN ASPART 100 UNITS/ML 3 ML PEN SC SCH ×4 (09:33→20:51)
[2020-11-07 15:22] LABS: Basophils # (auto) 0.02 K/uL (0-0.2); Basophils % (auto) 0.2 %; Eosinophils # (auto) 0.07 K/uL (0-0.5); Eosinophils % (auto) 0.6 %; Hematocrit (blood only) 37.6 % (37-47); Immature Granulocytes # (auto) 0.02 K/uL (0.00-0.02); Immature Granulocytes % (auto) 0.2 %; Lymphocytes # (auto) 1.28 K/uL (1.2-3.4); Lymphocytes % (auto) 10.4 %; Mean Corpuscular Hemoglobin 33.4 pg (25-34); Mean Corpuscular Hgb Conc 34.6 g/dL (32-36); Mean Corpuscular Volume 96.7 fL (80-100); Mean Platelet Volume 10.8 fL (7.4-10.4); Monocytes # (auto) 0.89 K/uL (0.11-0.59); Monocytes % (auto) 7.2 %; Neutrophils # (auto) 10.01 K/uL (1.4-6.5); Neutrophils % (auto) 81.4 %; Platelet Count 211 K/uL (130-400); RDW Coefficient of Variation 13.5 % (11.5-14.5); RDW Standard Deviation 47.2 fL (36.4-46.3); Red Blood Count 3.89 M/uL (4.2-5.4); White Blood Count 12.29 K/uL (4.8-10.8)
[2020-11-07 15:53] LABS: BUN Creatinine Ratio 19.3 (10-20); Creatinine Clr Calc Pharmacy 59.1 ml/min; Est GFR (Non-African American) 48.3 ml/min; Potassium 3.6 mmol/L (3.5-5.1)
--- NOTE | 2020-11-07 20:05 | Hospitalist Progress Note ---
Date of Service November 07, 2020 Assessment & Plan (1) Dizziness: Plan: Patient with postural dizziness and decreased strength and ambulation. Currently no obvious metabolic sources. Certainly could be medication side effect from her Bactrim. This will be stopped. CT scan of her brain is unremarkable from her visit on October 30 this was not repeated today she has no focal neurological signs Emergency department a TSH is normal lactic acid unremarkable troponins unremarkable electrolytes are in good repair EKG shows normal sinus rhythm any acute ST or T wave changes chest x-ray is unremarkable We will check an a.m. cortisol and a Lyme titer We will have PT OT evaluation survey cultures for causes of metabolic encephalopathy which is not apparently present currently Patient denies dizziness however she is confused. This may be a remnant of metabolic encephalopathy as she had a UTI. Patient is more lethargic today and just wants to sleep. She received olanzapine overnight. will monitor and hold further medication (2) UTI (urinary tract infection): Plan: Treated for 5 days with Bactrim for pansensitive E. coli we will stop this medication in case her dizziness is a side effect of the Bactrim (3) Diabetes mellitus type 2 in obese: Plan: Patient typically takes Metformin we will check an A1c we will continue her Metformin and offer her a carbohydrate conservative diet (4) Hypertension: Plan: Currently blood pressure is elevated we will check orthostatics in the morning, we will continue her metoprolol however reduce dose slightly because of bradycardia but continue irbesartan or substitute. She is also on atorvastatin for secondary risk prevention she will be offered hydralazine as needed and may need attention to her antihypertensive regiment (5) DVT prophylaxis: Plan: SCDs and early ambulation Patient is a full code Admission and Anticipated Discharge Date Admission Date: November 05, 2020 Subjective Patient is lethargic. Patient is having loose stools. Review of Systems Review of Systems: All systems reviewed & are unremarkable except as noted in HPI & below Physical Exam Physical Exam: The patient appeared well nourished and normally developed. Vital signs as documented. Head exam is normocephalic atraumatic Neck is without JVD, thyromegaly, or carotid bruits. Lungs are clear to auscultation, no focal loss of breath sounds Cardiac exam, Rhythm is regular.. No murmurs, rubs or gallops. Abdominal exam reveals normal bowel sounds, soft non tender, no masses Patient has crepitance in her left shoulder however I can externally rotated and internally rotated she does have some pain when she lifts it above 90 degrees her knees do not have any effusions on them there are small abrasions. Extremities are nonedematous and both pedal pulses are present Neurologic exam is alert and oriented, no focal loss of strength or sensation she can lift her legs off the bed but she is very weak this may have to do with her morbid obesity BMI 41 Skin is without bruises or rashes Psychologically is without concerns for anxiety or depression PG Care Time/CCT Total # of Minutes Spent Total Time Spent with Patient: Total time spent is greater than 50% in coordina tion of care (as documented) at patient's floor/unit and/or counseling patient: Coding Level of Care Code 40538 Subseq Hosp Care Lvl 2 Diagnoses Dizziness R42 UTI (urinary tract infection) N39.0 Diabetes mellitus type 2 in obese E11.69; E66.9 Hypertension I10 DVT prophylaxis Z29.9 Time Spent (min) 25
[2020-11-07] MEDS: POTASSIUM CHLORIDE CRTAB 20 MEQ TABCR PO SCH (20:51)
[2020-11-07] MEDS: MAGNESIUM OXIDE 400 MG TAB PO SCH (20:51)
[2020-11-08 06:25] LABS: Hematocrit (blood only) 38.1 % (37-47); Hemoglobin 12.6 g/dL (12.0-16.0); Mean Corpuscular Hemoglobin 32.6 pg (25-34); Mean Corpuscular Hgb Conc 33.1 g/dL (32-36); Mean Corpuscular Volume 98.7 fL (80-100); Mean Platelet Volume 11.3 fL (7.4-10.4); Platelet Count 191 K/uL (130-400); RDW Coefficient of Variation 13.8 % (11.5-14.5); Red Blood Count 3.86 M/uL (4.2-5.4); White Blood Count 10.32 K/uL (4.8-10.8)
[2020-11-08 06:54] LABS: Albumin Level 3.1 gm/dl (3.4-5.0); BUN Creatinine Ratio 21.2 (10-20); Calcium 8.6 mg/dl (8.5-10.1); Creatinine Clr Calc Pharmacy 46.2 ml/min; Est GFR (African American) 41.5 ml/min; Est GFR (Non-African American) 35.8 ml/min; Magnesium 1.9 mg/dl (1.8-2.4); Potassium 3.6 mmol/L (3.5-5.1)
[2020-11-08 06:56] LABS: Albumin Globulin Ratio 0.9 (0.9-2); Bilirubin,Total 0.8 mg/dl (0.2-1); Globulin 3.4 gm/dl (2.5-4.0); Total Protein 6.5 gm/dl (6.4-8.2)
[2020-11-08] MEDS: INSULIN ASPART 100 UNITS/ML 3 ML PEN SC SCH ×4 (08:02→20:20)
[2020-11-08] MEDS: POTASSIUM CHLORIDE CRTAB 20 MEQ TABCR PO SCH ×2 (08:17→20:16)
[2020-11-08] MEDS: IRBESARTAN 150 MG TAB PO SCH (08:17)
[2020-11-08] MEDS: DICLOFENAC SOD 1% GEL 100 GM TUBE EXT SCH ×2 (08:17→20:16)
[2020-11-08] MEDS: METOPROLOL TARTRATE 50 MG TAB PO SCH ×2 (08:17→20:15)
[2020-11-08] MEDS: metFORMIN HCL 500 MG TAB PO SCH ×2 (08:17→17:13)
[2020-11-08] MEDS: ATORVASTATIN 40 MG TAB PO SCH (08:17)
[2020-11-08] MEDS: MAGNESIUM OXIDE 400 MG TAB PO SCH ×2 (08:17→20:15)
[2020-11-08] MEDS ORDERED: LACTATED RINGER'S 1,000 ML IV SCH (08:45)
--- NOTE | 2020-11-08 08:58 | Hospitalist Progress Note ---
Date of Service November 08, 2020 Assessment & Plan (1) Acute metabolic encephalopathy: Plan: Patient has been agitated and confused the 2 days prior to today. She received olanzapine on 11/06 and she slept most of the day on 11/07. Today patient is awake alert oriented x3. Patient is pleasant, she no longer complains of dizziness. She also no longer is having diarrhea. perhaps, patient had a gastroenteritis which is subsiding. REVIEWING HER RECORDS, SHE DID NOT TAKE ANY LAXATIVES DURING HOSPITAL STAY. Her vital have improved. However, given her diarrhea (resolved) and MARLENE, will give IVF. If patient remains lucid, will discharge her tomorrow. Requires insurance auth at [facility], informed case management. (2) Dizziness: Plan: Possible Toxic encephalopathy secondary to Bactrim therapy Patient came in with postural dizziness and decreased strength and ambulation. Currently no obvious metabolic sources. Certainly could be medication side effect from her Bactrim. This was stopped on admission. CT scan of her brain is unremarkable from her visit on October 30 this was not repeated today she has no focal neurological signs Emergency department a TSH is normal lactic acid unremarkable troponins unremarkable electrolytes are in good repair EKG shows normal sinus rhythm any acute ST or T wave changes chest x-ray is unremarkable We will have PT OT evaluation survey cultures for causes of metabolic encephalopathy which is not apparently present currently This may be a remnant of metabolic encephalopathy as she had a UTI. Patient is more alert toady 36 hours after taking olanzapine. will continue to monitor. (3) UTI (urinary tract infection): Plan: Treated for 5 days with Bactrim for pansensitive E. coli we will stop this medication in case her dizziness is a side effect of the Bactrim (4) Diabetes mellitus type 2 in obese: Plan: Patient typically takes Metformin we will check an A1c we will continue her Metformin and offer her a carbohydrate conservative diet (5) Hypertension: Plan: Currently blood pressure is elevated we will check orthostatics in the morning, we will continue her metoprolol however reduce dose slightly because of bradycardia but continue irbesartan or substitute. She is also on atorvastatin for secondary risk prevention she will be offered hydralazine as needed and may need attention to her antihypertensive regiment (6) DVT prophylaxis: Plan: SCDs and early ambulation Patient is a full code (7) Left leg pain: Plan: Patient has left leg pain from her knee to her hip. It appeards she likely has advanced degenerative left hip and knee. will benefit from outpatient ortho folloup. will obtain x rays. Admission and Anticipated Discharge Date Admission Date: November 05, 2020 Subjective Had discussion with nurse prior to entering room. Patient reports she does not recall coming into the hospital. But she is aware she is in the hopsital. She states she is no longer having diarrhea. She reports left hip and knee pain. Review of Systems Review of Systems: All systems reviewed & are unremarkable except as noted in HPI & below Physical Exam Physical Exam: The patient appeared well nourished and normally developed. Vital signs as documented. Head exam is normocephalic atraumatic Neck is without JVD, thyromegaly, or carotid bruits. Lungs are clear to auscultation, no focal loss of breath sounds Cardiac exam, Rhythm is regular.. No murmurs, rubs or gallops. Abdominal exam reveals normal bowel sounds, soft non tender, no masses Extremities are nonedematous and both pedal pulses are present Neurologic exam is alert and oriented, no focal loss of strength or sensation she can lift her legs off the bed but she is very weak this may have to do with her morbid obesity BMI 41 Skin is without bruises or rashes Psychologically is without concerns for anxiety or depression Musculoskeletal: Left knee is non tender, arthritic changes noted on inspection: left log roll test is positive Results & Data Results & Data ([facility]) Vital Signs (Past 12 Hours) Vital Signs Temp Pulse Resp BP Pulse Ox 11/08/20 06:27 36.8 C 91 H 16 113/73 96 11/07/20 23:42 36.8 C 92 H 16 106/64 94 PG Care Time/CCT Total # of Minutes Spent Total Time Spent with Patient: Total time spent is greater than 50% in coordination of care (as documented) at patient's floor/unit and/or counseling patient: Coding Level of Care Code 30305 Subseq Hosp Care Lvl 2 Diagnoses Dizziness R42 UTI (urinary tract infection) N39.0 Diabetes mellitus type 2 in obese E11.69; E66.9 Hypertension I10 DVT prophylaxis Z29.9 Acute metabolic encephalopathy G93.41 Left leg pain M79.605 Time Spent (min) 25
--- NOTE | 2020-11-08 10:15 | XRay Report ---
LEFT KNEE 2 VIEWS CLINICAL HISTORY: Left knee pain. FINDINGS: AP and crosstable lateral views of the left knee are compared to study dated 11/04/2020. The skeletal structures are osteopenic. Mild varus deformity is noted. There is advanced tricompartmenta l degenerative joint space. There is near complete loss of the medial joint space with associated bon y sclerosis. There are large marginal osteophytes, with spurring along the anterior and posterior asp ect of the distal femur. There is no joint effusion. The overlying soft tissues are normal as visuali zed. IMPRESSION: 1. No acute bony abnormality is identified. No change from study performed 4 days previously. 2. Osteopenia and advanced degenerative change as above. Electronically signed by: Felice Maldondao M.D. 11/08/2020 10:13 AM
--- NOTE | 2020-11-08 10:16 | XRay Report ---
SINGLE VIEW PELVIS; 2 VIEWS LEFT HIP CLINICAL HISTORY: Left hip pain. FINDINGS: An AP view of the pelvis with AP and frog-leg views of the left hip are obtained No prior s tudies are available for comparison at the time of dictation. The skeletal structures are osteopenic. No fracture is seen involving the hips or bony pelvis. Moderate to advanced osteoarthritic change is present in the hips, left greater than right. There is significant bony overgrowth around the left h ip. Sclerotic change is noted in the sacroiliac joints. The overlying soft tissues are normal as imag ed. IMPRESSION: 1. No acute bony abnormality is identified. 2. Osteopenia and degenerative change as above. Electronically signed by: Felice Maldonado M.D. 11/08/2020 10:15 AM
[2020-11-08] MEDS: ACETAMINOPHEN 325 MG TAB PO PRN (17:13)
[2020-11-08] MEDS: LORazepam 0.5 MG TAB PO PRN (20:17)
[2020-11-09] MEDS: metFORMIN HCL 500 MG TAB PO SCH ×2 (08:44→17:36)
[2020-11-09] MEDS: DICLOFENAC SOD 1% GEL 100 GM TUBE EXT SCH ×2 (08:45→21:35)
[2020-11-09] MEDS: MAGNESIUM OXIDE 400 MG TAB PO SCH ×2 (08:45→21:35)
[2020-11-09] MEDS: METOPROLOL TARTRATE 50 MG TAB PO SCH ×2 (08:45→21:35)
[2020-11-09] MEDS: ATORVASTATIN 40 MG TAB PO SCH (08:45)
[2020-11-09] MEDS: POTASSIUM CHLORIDE CRTAB 20 MEQ TABCR PO SCH ×2 (08:45→21:35)
[2020-11-09] MEDS: INSULIN ASPART 100 UNITS/ML 3 ML PEN SC SCH ×4 (08:48→20:30)
[2020-11-09 09:04] LABS: Basophils # (auto) 0.03 K/uL (0-0.2); Basophils % (auto) 0.4 %; Eosinophils # (auto) 0.18 K/uL (0-0.5); Eosinophils % (auto) 2.2 %; Hematocrit (blood only) 37.5 % (37-47); Hemoglobin 12.3 g/dL (12.0-16.0); Immature Granulocytes # (auto) 0.01 K/uL (0.00-0.02); Immature Granulocytes % (auto) 0.1 %; Lymphocytes # (auto) 0.95 K/uL (1.2-3.4); Lymphocytes % (auto) 11.6 %; Mean Corpuscular Hgb Conc 32.8 g/dL (32-36); Mean Corpuscular Volume 97.7 fL (80-100); Mean Platelet Volume 10.9 fL (7.4-10.4); Monocytes # (auto) 0.67 K/uL (0.11-0.59); Monocytes % (auto) 8.2 %; Neutrophils # (auto) 6.35 K/uL (1.4-6.5); Neutrophils % (auto) 77.5 %; Platelet Count 183 K/uL (130-400); RDW Coefficient of Variation 13.7 % (11.5-14.5); RDW Standard Deviation 48.2 fL (36.4-46.3); Red Blood Count 3.84 M/uL (4.2-5.4); White Blood Count 8.19 K/uL (4.8-10.8)
[2020-11-09 09:34] LABS: BUN Creatinine Ratio 32.6 (10-20); Calcium 8.8 mg/dl (8.5-10.1); Creatinine Clr Calc Pharmacy 56.3 ml/min; Est GFR (African American) 53.4 ml/min; Potassium 3.9 mmol/L (3.5-5.1)
--- NOTE | 2020-11-09 13:11 | Hospitalist Progress Note ---
Date of Service November 09, 2020 Assessment & Plan (1) Acute metabolic encephalopathy: Plan: Clara is a 70-year-old female with a past medical history of hypertension, incontinence, weakness, obesity class III BMI 4049, hyperlipidemia, diabetes with peripheral neuropathy, and poor balance who presented with altered mental status now improved and suspected due to toxic infectious metabolic encephalopathy versus drug-induced toxic encephalopathy worsened by underlying MARLENE Acute metabolic encephalopathy - Improved, appears at baseline today Oriented to name, place, and year Discussed case with daughter, reports her mom seemed confused between breakfast and lunch by the phone suspect is also having some waxing and waning delirium -Diarrhea improved, Improved and appetite improving. Continues to have slightly elevated BUN/creatinine ratio with normal creatinine, will continue gentle fluids while p.o. intake increases Pending placement, [facility] referral declined, pending additional referrals (2) Dizziness: Plan: - Possible Toxic encephalopathy secondary to Bactrim therapyVersus infectious encephalopathy with UTI - Patient came in with postural dizziness and decreased strength and ambulation. Improved No focal neurologic signs to prompt CT on admission. CT scan 10/30/2020 without acute findings PT/OT recommend rehab (3) UTI (urinary tract infection): Plan: - Treated for 5 days with Bactrim for pansensitive E. coli we will stop this medication in case her dizziness is a side effect of the Bactrim (4) Diabetes mellitus type 2 in obese: Plan: Adequate glycemic control continuing Metformin 1 g twice daily Continue glucose checks AC/at bedtime, diabetic diet (5) Hypertension: Plan: Good BP control today Continue irbesartan and metoprolol. Irbesartan initially held this morning pending creatinine result, half dose given in afternoon (6) DVT prophylaxis: Plan: SCDs and early ambulation Diet: Diabetic CODE STATUS: Full code (7) Left leg pain: Plan: Patient has left leg pain from her knee to her hip. X-ray shows advanced degenerative left hip and knee. will benefit from outpatient ortho folloup. Admission and Anticipated Discharge Date Admission Date: November 05, 2020 Subjective Clara is seen at the bedside. She reports that she feels improved and doing well this morning. Denies pain, fever, chills today. She reports she continues to feel very weak, and is worried about her ability to walk. Denies difficulty breathing, shortness of breath, chest pain, abdominal pain. She reports she feels "much more clear, and hopes she does not have to deal with confusion like that ever again "she recognizes that she was confused, although reports her memory of it is poor. She reports her confusion feels completely resolved today. Denies diarrhea today. Continues to have right hip/knee pain unchanged from prior, not bothersome to her at rest in bed this morning. Review of Systems Review of Systems: 10Point review of systems negative except as noted in HPI Physical Exam Physical Exam: General: A&Ox3. NAD. Cooperative. HEENT: Atraumatic, normocephalic.Visual acuity and hearing grossly intact. Pulm: CTAB A&P. -wheezes, -rales, -rhonchi. Symmetrical chest rise. No increase work of breathing. No respiratory distress. Cardiac: RRR, -mrg. Radial pulses intact and symmetrical. Abdominal: Nontender, nondistended, soft. BS present. Extremities: Ankle dorsiflexion/plantar flexion and supervisor painting strength 5/5. Hip flexion weak to antigravity bilaterally. Sensation to soft touch intact in ankles and fingertips. Results & Data Results & Data ([facility]) Vital Signs (Past 12 Hours) Vital Signs Temp Pulse Resp BP Pulse Ox 11/09/20 10:01 67 128/80 99 11/09/20 07:18 36.7 C 75 18 175/70 H 96 PG Care Time/CCT Total # of Minutes Spent Total Time Spent with Patient: Total time spent is greater than 50% in coordination of care (as documented) at patient's floor/unit and/or counseling patient: Coding Level of Care Code 51738 Subseq Hosp Care Lvl 2 Diagnoses Acute metabolic encephalopathy G93.41 Dizziness R42 UTI (urinary tract infection) N39.0 Diabetes mellitus type 2 in obese E11.69; E66.9 Hypertension I10 DVT prophylaxis Z29.9 Left leg pain M79.605
[2020-11-09] MEDS: IRBESARTAN 150 MG TAB PO SCH (14:58)
[2020-11-09] MEDS ORDERED: IRBESARTAN 75 MG TAB PO ONE (15:11)
[2020-11-10 06:34] LABS: Basophils # (auto) 0.03 K/uL (0-0.2); Basophils % (auto) 0.4 %; Eosinophils # (auto) 0.17 K/uL (0-0.5); Eosinophils % (auto) 2.5 %; Hematocrit (blood only) 36.8 % (37-47); Hemoglobin 12.3 g/dL (12.0-16.0); Immature Granulocytes # (auto) 0.01 K/uL (0.00-0.02); Immature Granulocytes % (auto) 0.1 %; Lymphocytes # (auto) 1.18 K/uL (1.2-3.4); Lymphocytes % (auto) 17.3 %; Mean Corpuscular Hemoglobin 32.5 pg (25-34); Mean Corpuscular Hgb Conc 33.4 g/dL (32-36); Mean Corpuscular Volume 97.4 fL (80-100); Mean Platelet Volume 11.4 fL (7.4-10.4); Monocytes # (auto) 0.58 K/uL (0.11-0.59); Monocytes % (auto) 8.5 %; Neutrophils # (auto) 4.84 K/uL (1.4-6.5); Neutrophils % (auto) 71.2 %; Platelet Count 169 K/uL (130-400); RDW Coefficient of Variation 13.5 % (11.5-14.5); RDW Standard Deviation 47.5 fL (36.4-46.3); Red Blood Count 3.78 M/uL (4.2-5.4); White Blood Count 6.81 K/uL (4.8-10.8)
[2020-11-10 07:06] LABS: BUN Creatinine Ratio 38.7 (10-20); Calcium 8.9 mg/dl (8.5-10.1); Creatinine Clr Calc Pharmacy 70.7 ml/min; Est GFR (African American) 70.2 ml/min; Est GFR (Non-African American) 60.6 ml/min; Potassium 4.1 mmol/L (3.5-5.1)
[2020-11-10] MEDS: INSULIN ASPART 100 UNITS/ML 3 ML PEN SC SCH ×4 (09:14→21:07)
[2020-11-10] MEDS: DICLOFENAC SOD 1% GEL 100 GM TUBE EXT SCH ×2 (09:15→20:37)
[2020-11-10] MEDS: IRBESARTAN 150 MG TAB PO SCH (09:15)
[2020-11-10] MEDS: POTASSIUM CHLORIDE CRTAB 20 MEQ TABCR PO SCH ×2 (09:15→20:37)
[2020-11-10] MEDS: ATORVASTATIN 40 MG TAB PO SCH (09:15)
[2020-11-10] MEDS: MAGNESIUM OXIDE 400 MG TAB PO SCH ×2 (09:16→20:37)
[2020-11-10] MEDS: METOPROLOL TARTRATE 50 MG TAB PO SCH ×2 (09:16→20:37)
[2020-11-10] MEDS: metFORMIN HCL 500 MG TAB PO SCH ×2 (09:16→17:45)
--- NOTE | 2020-11-10 17:08 | Hospitalist Progress Note ---
Date of Service November 10, 2020 Assessment & Plan (1) Acute metabolic encephalopathy: Plan: Clara is a 70-year-old female with a past medical history of hypertension, incontinence, weakness, obesity class III BMI 4049, hyperlipidemia, diabetes with peripheral neuropathy, and poor balance who presented with altered mental status now improved and suspected due to toxic infectious metabolic encephalopathy versus drug-induced toxic encephalopathy worsened by underlying MARLENE Acute metabolic encephalopathy -Waxing and waning mental status, increased confusion today. Patient alert, nondistressed and appears nontoxic, but poorly oriented 11/09: Discussed case with daughter, reports her mom seemed confused between breakfast and lunch by the phone suspect is also having some waxing and waning delirium - 11/10: Attempted to reach family and by phone, unable to to get through and no machine to leave message -Diarrhea improved Improved and appetite improving. Pending placement, [facility] referral declined, pending additional referrals. - Suspect waxing and waning mental status with delirium, repeat UA pending, follow clinically. No focal neuro deficits at this time, CT on admission negative. (2) Dizziness: Plan: - Possible Toxic encephalopathy secondary to Bactrim therapy versus infectious encephalopathy with UTI - Patient came in with postural dizziness and decreased strength and ambulation. Improved No focal neurologic signs to prompt CT on admission. CT scan 10/30/2020 without acute findings PT/OT recommend rehab (3) UTI (urinary tract infection): Plan: - Treated for 5 days with Bactrim for pansensitive E. coli, stopped as dizziness is a side effect of the Bactrim (4) Diabetes mellitus type 2 in obese: Plan: Adequate glycemic control continuing Metformin 1 g twice daily Continue glucose checks AC/at bedtime, diabetic diet (5) Hypertension: Plan: Good BP control today Continue irbesartan and metoprolol. (6) DVT prophylaxis: Plan: SCDs and early ambulation Diet: Diabetic CODE STATUS: Full code (7) Left leg pain: Plan: Patient has left leg pain from her knee to her hip. X-ray shows advanced degenerative left hip and knee. will benefit from outpatient ortho folloup. Admission and Anticipated Discharge Date Admission Date: November 05, 2020 Jose Elizabeth is seen at the bedside this morning. She is awake, oriented, and nondistressed but is poorly oriented and appears confused. She is able to give her name, but is not aware of her location or the year and feels like she is living "in the twilight zone". Denies pain in any distress, review of systems negative as noted below. Denies fever, chills, sweats, chest pain, difficulty breathing, pain with urination. She reports she feels well and is surprised to learn she is in the hospital, but is not sure why. Review of Systems Review of Systems: 10 point review of systems negative, limited by suspected delirium as noted Physical Exam Physical Exam: General: Oriented to name only. NAD. Cooperative. HEENT: Atraumatic, normocephalic.Visual acuity and hearing grossly intact. Pulm: CTAB A&P. -wheezes, -rales, -rhonchi. Symmetrical chest rise. No increase work of breathing. No respiratory distress. Cardiac: RRR, -mrg. Radial pulses intact and symmetrical. Abdominal: Nontender, nondistended, soft. BS present. 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 Hip flexion weak but intact to antigravity bilaterally. Sensation to soft touch intact in ankles and fingertips. CRANIAL NERVES: II: Pupils equal and reactive, no relative afferent pupillary defect, no VF cuts III, IV, : EOM intact, no gaze preference or deviation, no nystagmus. V: normal sensation in V1, V2, and V3 segments bilaterally VII: no asymmetry, no nasolabial fold flattening VIII: normal hearing to speech IX, X: normal palatal elevation, no uvular deviation XI: 5/5 head turn and 5/5 shoulder shrug bilaterally XII: midline tongue protrusion Results & Data Results & Data ([facility]) Vital Signs (Past 12 Hours) Vital Signs Temp Pulse Resp BP Pulse Ox 11/10/20 14:59 36.7 C 77 18 134/89 96 11/10/20 08:29 36.7 C 88 18 164/90 H 98 PG Care Time/CCT Total # of Minutes Spent Total Time Spent with Patient: Total time spent is greater than 50% in coordination of care (as documented) at patient's floor/unit and/or counseling patient: Coding Level of Care Code 67696 Subseq Hosp Care Lvl 2 Diagnoses Acute metabolic encephalopathy G93.41 Dizziness R42 UTI (urinary tract infection) N39.0 Diabetes mellitus type 2 in obese E11.69; E66.9 Hypertension I10 DVT prophylaxis Z29.9 Left leg pain M79.605
[2020-11-10 18:19] LABS: Appearance Urine Clear (Clear); Bacteria Urine Automated Negative (Negative); Bilirubin Urine Negative (Negative); Blood Urine Negative (Negative); Color Urine Yellow; Epithelial Cell Urine Auto 20-30 /lpf (0-5); Glucose Urine UA Negative (Negative); Ketones Urine Trace (Negative); Leukocyte Esterase Urine Negative (Negative); Nitrite Urine Negative (Negative); Protein Urine Trace (Negative); RBC Urine Automated 0-4 /hpf (0-4); Specific Gravity Urine 1.021 (1.000-1.030); Urobilinogen Urine Negative (Negative)
[2020-11-10] MEDS: LORazepam 0.5 MG TAB PO PRN (20:40)
[2020-11-11] MEDS: ACETAMINOPHEN 325 MG TAB PO PRN (05:14)
[2020-11-11 06:13] LABS: Basophils # (auto) 0.04 K/uL (0-0.2); Basophils % (auto) 0.5 %; Eosinophils # (auto) 0.22 K/uL (0-0.5); Eosinophils % (auto) 2.9 %; Hemoglobin 12.7 g/dL (12.0-16.0); Lymphocytes # (auto) 1.37 K/uL (1.2-3.4); Lymphocytes % (auto) 18.3 %; Mean Corpuscular Hemoglobin 32.5 pg (25-34); Mean Corpuscular Hgb Conc 33.4 g/dL (32-36); Mean Corpuscular Volume 97.2 fL (80-100); Mean Platelet Volume 11.4 fL (7.4-10.4); Monocytes # (auto) 0.62 K/uL (0.11-0.59); Monocytes % (auto) 8.3 %; Neutrophils # (auto) 5.22 K/uL (1.4-6.5); Platelet Count 183 K/uL (130-400); RDW Coefficient of Variation 13.4 % (11.5-14.5); RDW Standard Deviation 47.1 fL (36.4-46.3); Red Blood Count 3.91 M/uL (4.2-5.4); White Blood Count 7.47 K/uL (4.8-10.8)
[2020-11-11 06:50] LABS: BUN Creatinine Ratio 35.1 (10-20); Creatinine Clr Calc Pharmacy 72.2 ml/min; Est GFR (African American) 72.1 ml/min; Est GFR (Non-African American) 62.2 ml/min; Potassium 4.1 mmol/L (3.5-5.1)
[2020-11-11] MEDS: metFORMIN HCL 500 MG TAB PO SCH ×2 (08:46→17:51)
[2020-11-11] MEDS: MAGNESIUM OXIDE 400 MG TAB PO SCH ×2 (08:46→21:07)
[2020-11-11] MEDS: IRBESARTAN 150 MG TAB PO SCH (08:46)
[2020-11-11] MEDS: POTASSIUM CHLORIDE CRTAB 20 MEQ TABCR PO SCH ×2 (08:46→21:07)
[2020-11-11] MEDS: ATORVASTATIN 40 MG TAB PO SCH (08:46)
[2020-11-11] MEDS: METOPROLOL TARTRATE 50 MG TAB PO SCH ×2 (08:46→21:07)
[2020-11-11] MEDS: DICLOFENAC SOD 1% GEL 100 GM TUBE EXT SCH ×2 (08:47→21:06)
[2020-11-11] MEDS: INSULIN ASPART 100 UNITS/ML 3 ML PEN SC SCH ×4 (08:48→21:07)
--- NOTE | 2020-11-11 14:03 | Hospitalist Progress Note ---
Date of Service November 11, 2020 Assessment & Plan (1) Acute metabolic encephalopathy: Plan: Clara is a 70-year-old female with a past medical history of hypertension, incontinence, weakness, obesity class III BMI 4049, hyperlipidemia, diabetes with peripheral neuropathy, and poor balance who presented with altered mental status now improved and suspected due to toxic infectious metabolic encephalopathy versus drug-induced toxic encephalopathy worsened by underlying MARLENE Acute metabolic encephalopathy -Waxing and waning mental status, increased confusion today. Patient alert, nondistressed and appears nontoxic, but poorly oriented 11/09: Discussed case with daughter, reports her mom seemed confused between breakfast and lunch by the phone suspect is also having some waxing and waning delirium - 11/10: Attempted to reach family and by phone, unable to to get through and no machine to leave message -Diarrhea improved Improved and appetite improving. Pending placement, [facility] referral declined, pending additional referrals. - Suspect waxing and waning mental status with delirium, repeat UA negative, no leukocytosis. Delirium precautions, reorient frequently during day and prevent day night reversal (2) Dizziness: Plan: - Possible Toxic encephalopathy secondary to Bactrim therapy versus infectious encephalopathy with UTI - Patient came in with postural dizziness and decreased strength and ambulation. Improved No focal neurologic signs to prompt CT on admission. CT scan 10/30/2020 without acute findings PT/OT recommend rehab (3) UTI (urinary tract infection): Plan: - Treated for 5 days with Bactrim for pansensitive E. coli, stopped as dizziness is a side effect of the Bactrim (4) Diabetes mellitus type 2 in obese: Plan: Adequate glycemic control continuing Metformin 1 g twice daily Continue glucose checks AC/at bedtime, diabetic diet (5) Hypertension: Plan: Good BP control today Continue irbesartan and metoprolol. (6) DVT prophylaxis: Plan: SCDs and early ambulation Diet: Diabetic CODE STATUS: Full code (7) Left leg pain: Plan: Patient has left leg pain from her knee to her hip. X-ray shows advanced degenerative left hip and knee. will benefit from outpatient ortho folloup. Admission and Anticipated Discharge Date Admission Date: November 05, 2020 Subjective Clara is seen at the bedside this morning. She reports she feels well, is aware she is in the hospital but needs to be reoriented that she is in [facility], is not sure why she is in the hospital. She denies pain, no knee pain today. Pleasant, review of systems negative as below. Discussed case with her daughter by phone, still pending SNF/rehab beds. Review of Systems Review of Systems: 10 point review of systems negative today Physical Exam Physical Exam: General: Oriented to name and building. NAD. Cooperative. HEENT: Atraumatic, normocephalic.Visual acuity and hearing grossly intact. Pulm: CTAB A&P. -wheezes, -rales, -rhonchi. Symmetrical chest rise. No increase work of breathing. No respiratory distress. Cardiac: RRR, -mrg. Radial pulses intact and symmetrical. Abdominal: Nontender, nondistended, soft. BS present. Extremities: Ankle dorsiflexion/plantar flexion and night clerk auditor strength 5/5. Hip flexion weak but intact to antigravity bilaterally. Sensation to soft touch intact in ankles and fingertips. Denies tenderness to knee palpation bilaterally today Results & Data Results & Data ([facility]) Vital Signs (Past 12 Hours) Vital Signs Temp Pulse Resp BP Pulse Ox 11/11/20 07:35 36.8 C 71 16 143/83 H 97 PG Care Time/CCT Total # of Minutes Spent Total Time Spent with Patient: Total time spent is greater than 50% in coordination of care (as documented) at patient's floor/unit and/or counseling patient: Coding Level of Care Code 55667 Subseq Hosp Care Lvl 2 Diagnoses Acute metabolic encephalopathy G93.41 Dizziness R42 UTI (urinary tract infection) N39.0 Diabetes mellitus type 2 in obese E11.69; E66.9 Hypertension I10 DVT prophylaxis Z29.9 Left leg pain M79.605
[2020-11-11] MEDS: LORazepam 0.5 MG TAB PO PRN (21:06)
[2020-11-12 06:48] LABS: Basophils # (auto) 0.04 K/uL (0-0.2); Basophils % (auto) 0.6 %; Eosinophils # (auto) 0.22 K/uL (0-0.5); Eosinophils % (auto) 3.1 %; Hematocrit (blood only) 36.3 % (37-47); Hemoglobin 12.2 g/dL (12.0-16.0); Immature Granulocytes # (auto) 0.01 K/uL (0.00-0.02); Immature Granulocytes % (auto) 0.1 %; Lymphocytes # (auto) 1.42 K/uL (1.2-3.4); Lymphocytes % (auto) 19.9 %; Mean Corpuscular Hemoglobin 32.5 pg (25-34); Mean Corpuscular Hgb Conc 33.6 g/dL (32-36); Mean Corpuscular Volume 96.8 fL (80-100); Mean Platelet Volume 11.2 fL (7.4-10.4); Monocytes # (auto) 0.58 K/uL (0.11-0.59); Monocytes % (auto) 8.1 %; Neutrophils # (auto) 4.87 K/uL (1.4-6.5); Neutrophils % (auto) 68.2 %; Platelet Count 180 K/uL (130-400); RDW Coefficient of Variation 13.3 % (11.5-14.5); RDW Standard Deviation 46.3 fL (36.4-46.3); Red Blood Count 3.75 M/uL (4.2-5.4); White Blood Count 7.14 K/uL (4.8-10.8)
[2020-11-12 07:40] LABS: BUN Creatinine Ratio 39.3 (10-20); Calcium 8.9 mg/dl (8.5-10.1); Creatinine Clr Calc Pharmacy 70.7 ml/min; Est GFR (African American) 70.2 ml/min; Est GFR (Non-African American) 60.6 ml/min; Potassium 4.8 mmol/L (3.5-5.1)
[2020-11-12] MEDS: POTASSIUM CHLORIDE CRTAB 20 MEQ TABCR PO SCH ×2 (07:52→20:25)
[2020-11-12] MEDS: METOPROLOL TARTRATE 50 MG TAB PO SCH ×2 (07:52→20:25)
[2020-11-12] MEDS: MAGNESIUM OXIDE 400 MG TAB PO SCH ×2 (07:52→20:24)
[2020-11-12] MEDS: metFORMIN HCL 500 MG TAB PO SCH ×2 (07:52→17:20)
[2020-11-12] MEDS: IRBESARTAN 150 MG TAB PO SCH (07:52)
[2020-11-12] MEDS: ATORVASTATIN 40 MG TAB PO SCH (07:52)
[2020-11-12] MEDS: DICLOFENAC SOD 1% GEL 100 GM TUBE EXT SCH ×2 (07:53→20:23)
[2020-11-12] MEDS: INSULIN ASPART 100 UNITS/ML 3 ML PEN SC SCH ×4 (08:50→20:56)
--- NOTE | 2020-11-12 13:26 | Hospitalist Progress Note ---
Date of Service November 12, 2020 Assessment & Plan (1) Acute metabolic encephalopathy: Plan: Clara is a 70-year-old female with a past medical history of hypertension, incontinence, weakness, obesity class III BMI 4049, hyperlipidemia, diabetes with peripheral neuropathy, and poor balance who presented with altered mental status now improved and suspected due to toxic infectious metabolic encephalopathy versus drug-induced toxic encephalopathy worsened by underlying MARLENE Acute metabolic encephalopathy -Waxing and waning mental status, increased confusion today. Patient alert, nondistressed and appears nontoxic, but poorly oriented 11/09: Discussed case with daughter, reports her mom seemed confused between breakfast and lunch by the phone suspect is also having some waxing and waning delirium - 11/10: Attempted to reach family and by phone, unable to to get through and no machine to leave message -Diarrhea improved Improved and appetite improving. Pending placement, [facility] referral declined, pending additional referrals. - Suspect waxing and waning mental status with delirium, repeat UA negative, no leukocytosis. Delirium precautions, reorient frequently during day and prevent day night reversal Anticipate placement bed available potentially Monday (2) Dizziness: Plan: - Possible Toxic encephalopathy secondary to Bactrim therapy versus infectious encephalopathy with UTI - Patient came in with postural dizziness and decreased strength and ambulation. Improved No focal neurologic signs to prompt CT on admission. CT scan 10/30/2020 without acute findings PT/OT recommend rehab (3) UTI (urinary tract infection): Plan: - Treated for 5 days with Bactrim for pansensitive E. coli, stopped as dizziness is a side effect of the Bactrim (4) Diabetes mellitus type 2 in obese: Plan: Adequate glycemic control continuing Metformin 1 g twice daily Continue glucose checks AC/at bedtime, diabetic diet (5) Hypertension: Plan: Good BP control today Continue irbesartan and metoprolol. (6) DVT prophylaxis: Plan: SCDs and early ambulation Diet: Diabetic CODE STATUS: Full code (7) Left leg pain: Plan: Patient has left leg pain from her knee to her hip. X-ray shows advanced degenerative left hip and knee. will benefit from outpatient ortho folloup. Admission and Anticipated Discharge Date Admission Date: November 05, 2020 Subjective Seen at bedside, patient with improved orientation this morning. Oriented to place and name, but not date. No distress, denies symptoms. Pleasant, no questions or concerns. Review of Systems Review of Systems: 10 point review systems negative except as noted in HPI Physical Exam Physical Exam: General: Oriented to name and building. NAD. Cooperative. HEENT: Atraumatic, normocephalic.Visual acuity and hearing grossly intact. Pulm: CTAB A&P. -wheezes, -rales, -rhonchi. Symmetrical chest rise. No increase work of breathing. No respiratory distress. Cardiac: RRR, -mrg. Radial pulses intact and symmetrical. Abdominal: Nontender, nondistended, soft. BS present. 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 Results & Data Results & Data ([facility]) Vital Signs (Past 12 Hours) Vital Signs Temp Pulse Resp BP Pulse Ox 11/12/20 08:11 36.6 C 67 18 152/70 H 96 PG Care Time/CCT Total # of Minutes Spent Total Time Spent with Patient: Total time spent is greater than 50% in coordination of care (as documented) at patient's floor/unit and/or counseling patient: Coding Level of Care Code 51281 Subseq Hosp Care Lvl 1 Diagnoses Acute metabolic encephalopathy G93.41 Dizziness R42 UTI (urinary tract infection) N39.0 Diabetes mellitus type 2 in obese E11.69; E66.9 Hypertension I10 DVT prophylaxis Z29.9 Left leg pain M79.605
[2020-11-13 07:16] LABS: Basophils # (auto) 0.03 K/uL (0-0.2); Basophils % (auto) 0.4 %; Eosinophils # (auto) 0.22 K/uL (0-0.5); Eosinophils % (auto) 2.8 %; Hemoglobin 12.4 g/dL (12.0-16.0); Immature Granulocytes # (auto) 0.02 K/uL (0.00-0.02); Immature Granulocytes % (auto) 0.3 %; Lymphocytes # (auto) 1.87 K/uL (1.2-3.4); Lymphocytes % (auto) 24.1 %; Mean Corpuscular Hemoglobin 32.3 pg (25-34); Mean Corpuscular Hgb Conc 33.5 g/dL (32-36); Mean Corpuscular Volume 96.4 fL (80-100); Mean Platelet Volume 11.7 fL (7.4-10.4); Monocytes # (auto) 0.58 K/uL (0.11-0.59); Monocytes % (auto) 7.5 %; Neutrophils # (auto) 5.05 K/uL (1.4-6.5); Neutrophils % (auto) 64.9 %; Platelet Count 183 K/uL (130-400); RDW Coefficient of Variation 13.3 % (11.5-14.5); RDW Standard Deviation 45.7 fL (36.4-46.3); Red Blood Count 3.84 M/uL (4.2-5.4); White Blood Count 7.77 K/uL (4.8-10.8)
[2020-11-13 07:45] LABS: BUN Creatinine Ratio 40.1 (10-20); Creatinine Clr Calc Pharmacy 73.8 ml/min; Est GFR (Non-African American) 63.9 ml/min; Potassium 4.5 mmol/L (3.5-5.1)
[2020-11-13] MEDS: METOPROLOL TARTRATE 50 MG TAB PO SCH ×2 (08:15→20:23)
[2020-11-13] MEDS: IRBESARTAN 150 MG TAB PO SCH (08:16)
[2020-11-13] MEDS: POTASSIUM CHLORIDE CRTAB 20 MEQ TABCR PO SCH ×2 (08:16→20:24)
[2020-11-13] MEDS: ATORVASTATIN 40 MG TAB PO SCH (08:16)
[2020-11-13] MEDS: metFORMIN HCL 500 MG TAB PO SCH ×2 (08:16→17:12)
[2020-11-13] MEDS: MAGNESIUM OXIDE 400 MG TAB PO SCH ×2 (08:16→20:24)
--- NOTE | 2020-11-13 08:44 | Hospitalist Progress Note ---
Date of Service November 13, 2020 Assessment & Plan (1) Acute metabolic encephalopathy: Plan: Clara is a 70-year-old female with a past medical history of hypertension, incontinence, weakness, obesity class III BMI 4049, hyperlipidemia, diabetes with peripheral neuropathy, and poor balance who presented with altered mental status now improved and suspected due to toxic infectious metabolic encephalopathy versus drug-induced toxic encephalopathy worsened by underlying MARLENE Acute metabolic encephalopathy -Orientation greatly improved 11/13 11/09: Discussed case with daughter, reports her mom seemed confused between breakfast and lunch by the phone suspect is also having some waxing and waning delirium - 11/10: Attempted to reach family and by phone, unable to to get through and no machine to leave message -Diarrhea improved Improved and appetite improving. Pending placement, [facility] referral declined, pending additional referrals. - Suspect waxing and waning mental status with delirium, repeat UA negative, no leukocytosis. Delirium precautions, reorient frequently during day and prevent day night reversal Anticipate placement bed available potentially Monday (2) Dizziness: Plan: - Possible Toxic encephalopathy secondary to Bactrim therapy versus infectious encephalopathy with UTI - Patient came in with postural dizziness and decreased strength and ambulation. Improved No focal neurologic signs to prompt CT on admission. CT scan 10/30/2020 without acute findings PT/OT recommend rehab (3) Shoulder subluxation, left: Plan: - Chronic, shoulder dislocates in and out intermittently. Several months per pt - Pt seen as outpt, seen physical therapy and told may connect with an orthopedist electively - L shoulder RoM improves with scapular stabilization, L shoulder elevation limited at baseline. internal/external rotation mostly intact -Discussed with patient/family, Ortho consult placed (4) UTI (urinary tract infection): Plan: - Treated for 5 days with Bactrim for pansensitive E. coli, stopped as dizziness is a side effect of the Bactrim (5) Diabetes mellitus type 2 in obese: Plan: Adequate glycemic control continuing Metformin 1 g twice daily Continue glucose checks AC/at bedtime, diabetic diet (6) Hypertension: Plan: Good BP control today Continue irbesartan and metoprolol. (7) DVT prophylaxis: Plan: SCDs and early ambulation Diet: Diabetic CODE STATUS: Full code (8) Left leg pain: Plan: Patient has left leg pain from her knee to her hip. X-ray shows advanced degenerative left hip and knee. will benefit from outpatient ortho folloup. Admission and Anticipated Discharge Date Admission Date: November 05, 2020 Subjective Clara is seen at the bedside this morning, she is alert and oriented x3. Mentation appears greatly improved and at/near normal baseline. Discussed course of care, also discussed patient's chronic shoulder dislocation/subluxation with her. Was noted on exam, patient notes that for several months her shoulder has dislocated and while not painful to her limits her ability to raise her left arm. She had been seen by primary care physician who recommended she refer to physical therapy and electively follow-up with orthopedic as an outpatient which she had not yet done. X-ray on admission consistent with shoulder subluxation/dislocation, reduced previously during admission, is again "out "today during exam. Passive range of motion intact without pain, patient unable to elevate her arm left today, but improved elevation of the arm at the shoulder with stabilization of the shoulder blade and humeral head. Review of Systems Review of Systems: Constitutional: Denies fever, chills, malaise Eyes: Denies vision change ENT: Denies ear pain, sore throat, sinus pain Cardiovascular: Denies Chest pain, chest pressure, palpitations, extremity swelling Respiratory: Denies shortness of breath, cough, sputum production, difficulty breathing Gastrointestinal: Denies abdominal pain, nausea, vomiting, constipation, diarrhea Genitourinary: Denies dysuria, urinary frequency Musculoskeletal: Denies acute focal weakness, muscle aches/pain, joint aches/ pain. Endorses chronic left shoulder difficulty and weakness intermittently as noted in subjective Integumentary:Denies acute rash, lesions, bruising Neurological: Denies headache, numbness, tingling, acute focal weakness Physical Exam Physical Exam: General: Alert and oriented, pleasant, oriented to name /month/place/year today. NAD. Cooperative. HEENT: Atraumatic, normocephalic.Visual acuity and hearing grossly intact. Pulm: CTAB A&P. -wheezes, -rales, -rhonchi. Symmetrical chest rise. No increase work of breathing. No respiratory distress. Cardiac: RRR, -mrg. Radial pulses intact and symmetrical. Abdominal: Nontender, nondistended, soft. BS present. 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 Left shoulder internal/external rotation grossly intact, patient with inability to elevate left arm. Patient able to elevate arm with stabilization of shoulder blade and shoulder with examiner palm, reduction and displacement felt during exam with no pain to patient. Sensation in fingertips intact. Radial pulses intact bilaterally. Results & Data Results & Data ([facility]) Vital Signs (Past 12 Hours) Vital Signs Temp Pulse Resp BP Pulse Ox 11/13/20 06:08 36.9 C 72 18 162/88 H 93 PG Care Time/CCT Total # of Minutes Spent Total Time Spent with Patient: Total time spent is greater than 50% in coordination of care (as documented) at patient's floor/unit and/or counseling patient: Coding Level of Care Code 35630 Subseq Hosp Care Lvl 2 Diagnoses Acute metabolic encephalopathy G93.41 Dizziness R42 UTI (urinary tract infection) N39.0 Diabetes mellitus type 2 in obese E11.69; E66.9 Hypertension I10 DVT prophylaxis Z29.9 Left leg pain M79.605 Shoulder subluxation, left S43.002A
[2020-11-13] MEDS: DICLOFENAC SOD 1% GEL 100 GM TUBE EXT SCH ×2 (09:52→20:23)
[2020-11-13] MEDS: INSULIN ASPART 100 UNITS/ML 3 ML PEN SC SCH ×4 (10:09→20:25)
--- NOTE | 2020-11-13 10:30 | Orthopedic Consultation ---
Date of Service November 13, 2020 Assessment & Plan (1) Shoulder subluxation, left: It does look like her left shoulder is inferiorly subluxated on the chest xray. I ordered some shoulder xrays of the shoulder today. Will review/discuss with Dr. Paniagua. History of Present Illness Reason for Consultation: . Requesting Physician: . Attending Physician: Dioni Yanez MD . 70 year old patient, right hand dominant, admitted with encephalopathy/dizziness/weakness, and apparently has a chronic dislocation of her left shoulder. She has some confusion so the history was obtained from her records as well. She states that she has had shoulder pain for a year or so, then said maybe 5 months. It sounds like she has had an injection at some point and also some therapy. Allergies Allergy/AdvReac Type Severity Reaction Status Date / Time No Known Drug Allergies Allergy Verified 06/10/20 11:42 Home Medications Medication Instructions Recorded Confirmed Type atorvastatin 80 mg tablet 80 mg PO DAILY #90 tab 12/11/19 11/04/20 Rx metoprolol tartrate 100 mg tablet 100 mg PO BID #180 tab 04/13/20 11/04/20 Rx irbesartan 150 mg tablet 150 mg PO DAILY #90 tab 05/05/20 11/04/20 Rx metformin 1,000 mg tablet 1,000 mg PO BID #180 tab 05/21/20 11/04/20 Rx sulfamethoxazole 800 1 tab PO Q12H #14 tab 10/30/20 11/04/20 Rx mg-trimethoprim 160 mg tablet (Bactrim DS) Past Med/Surg History Medical History Diabetes mellitus type 2 in obese Hypertension Routine health maintenance Surgical History History of cholecystectomy History of tubal ligation Family History Father Prostate cancer Myocardial infarction Aunt Cancer x 2 colon Aunt Hodgkin lymphoma Denies family history of Ovarian cancer Breast cancer Colorectal cancer Social History Smoking Status: Former smoker Hx Alcohol Use: No Hx Substance Use: No Preferred Language: French Communication Ability: Effective Beliefs That Will Affect Care: None marital status: Current Living Situation: Spouse current occupational status: retired Other Information That Helps Us Care for You: No Feels Safe at Home: Yes Childhood Exposure to Second-Hand Smoke: No caffeine: Yes Dental Care, Regularly: No Physical Activity Frequency: Does not Exercise Seatbelt Use: always Sunscreen Use: No Assistive Devices: Walker Review of Systems All systems reviewed & are unremarkable except as noted in HPI & below. Physical Exam .alert, no distress. Left arm: She is not able to actively raise her left shoulder. Good elbow range of motion and finger motion. She tolerates passive rotation of the shoulder well and I did feel a clunk with rotation. Results & Data Results & Data Laboratory Results . Diagnostic Findings . PG Care Time/CCT Total # of Minutes Spent Total Time Spent with Patient: Total time spent is greater than 50% in coordination of care (as documented) at patient's floor/unit and/or counseling patient: Supervising Physician Co-Signing Physician Notes Radiographs in the inpatient chart reviewed. Spoke directly with Julio Jonas PA-C about this patient. Exam consistent with limited motion potential subluxation/dislocation Attempted to reach out to her by phone however there is no answer and voicemail full. I did contact her [id number] who volunteered additional medical information. The patient has been functionally limited due to left leg pain related to osteoarthritis and obesity. She uses a walker but was having increasing difficult time walking because of the shoulder. This was evaluated by her primary care. She was referred appropriately to physical therapy which was underway prior to admission. Shoulder symptoms been present for over a year but seem to be more symptomatic for the past few months. Has not been seen by orthopedics and desire to avoid surgery if possible. Agree with the PAs note. My recommendation is for physical therapy and Occupational Therapy for accommodations due to shoulder instability. Closed reduction maneuvers for a chronic dislocation are not indicated. She should undergo gentle active/active assisted range of motion and rotator cuff training. She can follow-up with orthopedic surgery as an outpatient. Coding Level of Care Code 82159 Inpt Consult Level 3 Diagnoses Shoulder subluxation, left S43.002A
[2020-11-13] MEDS: ACETAMINOPHEN 325 MG TAB PO PRN (12:22)
[2020-11-13] MEDS: LORazepam 0.5 MG TAB PO PRN (12:22)
--- NOTE | 2020-11-13 13:53 | XRay Report ---
LEFT SHOULDER 3 VIEWS CLINICAL HISTORY: Left shoulder pain. Dislocation. FINDINGS: 3 views of the left shoulder are obtained correlation is made with chest x-ray dated 021. The skeletal structures are osteopenic. There is anterior shoulder dislocation. No definite acut e fracture is identified. There is a chronic appearing Hill-Sachs deformity. There is also chronic ap pearing posttraumatic deformity of the humeral neck. A 9 mm calcific density posterior to the glenoid appears corticated and may resent a chronic avulsion fracture or possibly calcified joint body. Dege nerative change and mild widening is seen at the acromioclavicular joint. Overlying soft tissue edema is noted. The visualized left lung parenchyma appears clear. IMPRESSION: 1. Anterior shoulder dislocation. 2. No definite acute fracture is seen. 3. Suspect a chronic Hill-Sachs lesion of the humeral head. 4. A corticated appearing ossific density posterior to the glenoid may represent a joint body or poss ibly a remote avulsion injury. 5. Overlying soft tissue edema is noted. Electronically signed by: Felice Maldonado M.D. 11/13/2020 1:51 PM
[2020-11-14 07:36] LABS: Basophils # (auto) 0.05 K/uL (0-0.2); Basophils % (auto) 0.7 %; Eosinophils % (auto) 2.8 %; Hematocrit (blood only) 36.2 % (37-47); Hemoglobin 12.1 g/dL (12.0-16.0); Immature Granulocytes # (auto) 0.03 K/uL (0.00-0.02); Immature Granulocytes % (auto) 0.4 %; Lymphocytes # (auto) 1.49 K/uL (1.2-3.4); Lymphocytes % (auto) 20.6 %; Mean Corpuscular Hemoglobin 31.8 pg (25-34); Mean Corpuscular Hgb Conc 33.4 g/dL (32-36); Mean Platelet Volume 11.6 fL (7.4-10.4); Monocytes # (auto) 0.54 K/uL (0.11-0.59); Monocytes % (auto) 7.5 %; Neutrophils # (auto) 4.92 K/uL (1.4-6.5); Platelet Count 193 K/uL (130-400); RDW Coefficient of Variation 13.2 % (11.5-14.5); RDW Standard Deviation 45.8 fL (36.4-46.3); Red Blood Count 3.81 M/uL (4.2-5.4); White Blood Count 7.23 K/uL (4.8-10.8)
[2020-11-14 07:53] LABS: BUN Creatinine Ratio 36.3 (10-20); Calcium 9.1 mg/dl (8.5-10.1); Est GFR (African American) 73.1 ml/min; Potassium 4.7 mmol/L (3.5-5.1)
[2020-11-14] MEDS: INSULIN ASPART 100 UNITS/ML 3 ML PEN SC SCH ×4 (09:25→21:31)
[2020-11-14] MEDS: IRBESARTAN 150 MG TAB PO SCH (09:28)
[2020-11-14] MEDS: metFORMIN HCL 500 MG TAB PO SCH ×2 (09:28→17:35)
[2020-11-14] MEDS: ATORVASTATIN 40 MG TAB PO SCH (09:28)
[2020-11-14] MEDS: MAGNESIUM OXIDE 400 MG TAB PO SCH ×2 (09:28→21:05)
[2020-11-14] MEDS: METOPROLOL TARTRATE 50 MG TAB PO SCH ×2 (09:28→21:05)
[2020-11-14] MEDS: POTASSIUM CHLORIDE CRTAB 20 MEQ TABCR PO SCH ×2 (09:28→21:05)
[2020-11-14] MEDS: DICLOFENAC SOD 1% GEL 100 GM TUBE EXT SCH ×2 (09:33→21:04)
--- NOTE | 2020-11-14 12:53 | Orthopedic Progress Note ---
Date of Service November 14, 2020 Assessment & Plan (1) Shoulder subluxation, left: She has chronic left upper instability and rotator cuff dysfunction. I spoke with the patient today as well as a family member yesterday. They are all aware of the recommendation and physical therapy. She can follow-up with orthopedics as an outpatient if she is well enough to consider surgical intervention from shoulder pain and dysfunction. In many cases with chronic instability in this age group and functional level, the patient can be treated nonoperatively with activity modifications. Physical therapy will help optimize function and demonstrate modifications to accomplish ADLs. Contact orthopedics with any further questions. Subjective Today she reports that her left shoulder has been problematic for her for 5 or 5-1/2 months. She states that it has been intermittently painful and often slides out of place. She has seen other providers and been told that it is likely a large rotator cuff tear resulting in instability. She was recommended to be treated with physical therapy. She states that the shoulder has cracking and catching and is often painful. She is right-hand dominant. Review of Systems All systems reviewed & are unremarkable except as noted in HPI & below. Physical Exam Left upper extremity: She has full active range of motion wrist digits and elbow. She has limited glenohumeral motion to about 45 of forward flexion and 30-45 of abduction. She can abduct against resistance at the elbow. She is a positive external rotation lag. There is a positive drop arm. On active and passive range of motion she has crepitus is minimally painful. No obvious deformities on inspection. Constitutional WD/WN, vitals as above no acute distress and not intoxicated appearing Respiratory normal respiratory effort; no labored breathing Cardiovascular Extremities: normal capillary refill Results & Data Results & Data Laboratory Results . Diagnostic Findings Radiographs from yesterday demonstrate anterior-inferior subluxation of the humeral head on the glenoid with some chronic appearing Hill-Sachs deformity as well as avulsion in the posterior soft tissues. PG Care Time/CCT Total # of Minutes Spent Total Time Spent with Patient: Total time spent is greater than 50% in coordination of care (as documented) at patient's floor/unit and/or counseling patient: Coding Level of Care Code 25587 Subseq Obs Care Lvl 3 Diagnoses Shoulder subluxation, left S43.002A
[2020-11-14] MEDS: ACETAMINOPHEN 325 MG TAB PO PRN ×2 (13:28→19:30)
--- NOTE | 2020-11-14 16:15 | Hospitalist Progress Note ---
Date of Service November 14, 2020 Assessment & Plan (1) Acute metabolic encephalopathy: Plan: Clara is a 70-year-old female with a past medical history of hypertension, incontinence, weakness, obesity class III BMI 4049, hyperlipidemia, diabetes with peripheral neuropathy, and poor balance who presented with altered mental status now improved and suspected due to toxic infectious metabolic encephalopathy versus drug-induced toxic encephalopathy worsened by underlying MARLENE Acute metabolic encephalopathy -Orientation greatly improved 11/13 11/09: Discussed case with daughter, reports her mom seemed confused between breakfast and lunch by the phone suspect is also having some waxing and waning delirium - 11/10: Attempted to reach family and by phone, unable to to get through and no machine to leave message -Diarrhea improved Improved and appetite improving. Pending placement[facility], anticipate bed available 11/16 or 11/17 - Suspect waxing and waning mental status with delirium, repeat UA negative, no leukocytosis. Delirium precautions, reorient frequently during day and prevent day night reversal (2) Dizziness: Plan: - Possible Toxic encephalopathy secondary to Bactrim therapy versus infectious encephalopathy with UTI - Patient came in with postural dizziness and decreased strength and ambulation. Improved No focal neurologic signs to prompt CT on admission. CT scan 10/30/2020 without acute findings PT/OT recommend rehab (3) Shoulder subluxation, left: Plan: - Chronic, shoulder dislocates in and out intermittently. Several months per pt - Pt seen as outpt, seen physical therapy and told may connect with an orthopedist electively - L shoulder RoM improves with scapular stabilization, L shoulder elevation limited at baseline. internal/external rotation mostly intact Ortho consulted. Recommend nonsurgical management, rehab at this time. May follow-up electively as outpatient for surgical evaluation if functionally limiting or pain develops. No acute intervention at this time. Appreciate recommendations. Discussed with patient and family. (4) UTI (urinary tract infection): Plan: - Treated for 5 days with Bactrim for pansensitive E. coli, stopped as dizziness is a side effect of the Bactrim (5) Diabetes mellitus type 2 in obese: Plan: Adequate glycemic control continuing Metformin 1 g twice daily Continue glucose checks AC/at bedtime, diabetic diet (6) Hypertension: Plan: Good BP control today Continue irbesartan and metoprolol. (7) DVT prophylaxis: Plan: SCDs and early ambulation Diet: Diabetic CODE STATUS: Full code (8) Left leg pain: Plan: Patient has left leg pain from her knee to her hip. X-ray shows advanced degenerative left hip and knee. will benefit from outpatient ortho folloup. Ortho also consulted for shoulder as noted above. Admission and Anticipated Discharge Date Admission Date: November 05, 2020 Subjective Doing well, unchanged from prior. No confusion appreciated at bedside today, patient is oriented to place and name. Continues to guard left shoulder, but denies any pain. Review of Systems Review of Systems: Constitutional: Denies fever, chills, malaise Eyes: Denies vision change ENT: Denies ear pain, sore throat, sinus pain Cardiovascular: Denies Chest pain, chest pressure, palpitations, extremity swelling Respiratory: Denies shortness of breath, cough, sputum production, difficulty breathing Gastrointestinal: Denies abdominal pain, nausea, vomiting, constipation, diarrhea Genitourinary: Denies dysuria, urinary frequency Musculoskeletal: Denies acute focal weakness, muscle aches/pain, joint aches/pain. Endorses chronic left shoulder difficulty and weakness intermittently as noted in subjective Integumentary:Denies acute rash, lesions, bruising Neurological: Denies headache, numbness, tingling, acute focal weakness Physical Exam Physical Exam: General: Alert and oriented, pleasant, oriented to name/month/place today. NAD. Cooperative. HEENT: Atraumatic, normocephalic.Visual acuity and hearing grossly intact. Pulm: CTAB A&P. -wheezes, -rales, -rhonchi. Symmetrical chest rise. No increase work of breathing. No respiratory distress. Cardiac: RRR, -mrg. Radial pulses intact and symmetrical. Abdominal: Nontender, nondistended, soft. BS present. 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 Left arm in flexion, moves and internal/external rotation without extension. No pain. Sensation in fingertips intact. Radial pulses intact bilaterally. Results & Data Results & Data ([facility]) Vital Signs (Past 12 Hours) Vital Signs Temp Pulse Resp BP Pulse Ox 11/14/20 15:08 36.4 C L 69 16 106/63 98 11/14/20 07:00 36.9 C 77 18 148/71 H 95 PG Care Time/CCT Total # of Minutes Spent Total Time Spent with Patient: Total time spent is greater than 50% in coordination of care (as documented) at patient's floor/unit and/or counseling patient: Coding Level of Care Code 78141 Subseq Hosp Care Lvl 1 Diagnoses Acute metabolic encephalopathy G93.41 Dizziness R42 Shoulder subluxation, left S43.002A UTI (urinary tract infection) N39.0 Diabetes mellitus type 2 in obese E11.69; E66.9 Hypertension I10 DVT prophylaxis Z29.9 Left leg pain M79.605
[2020-11-15] MEDS: ACETAMINOPHEN 325 MG TAB PO PRN ×2 (02:18→17:33)
[2020-11-15 06:02] LABS: Basophils # (auto) 0.04 K/uL (0-0.2); Basophils % (auto) 0.6 %; Eosinophils % (auto) 2.9 %; Hematocrit (blood only) 36.3 % (37-47); Hemoglobin 12.2 g/dL (12.0-16.0); Immature Granulocytes # (auto) 0.02 K/uL (0.00-0.02); Immature Granulocytes % (auto) 0.3 %; Lymphocytes # (auto) 1.51 K/uL (1.2-3.4); Lymphocytes % (auto) 22.1 %; Mean Corpuscular Hemoglobin 32.3 pg (25-34); Mean Corpuscular Hgb Conc 33.6 g/dL (32-36); Mean Platelet Volume 11.5 fL (7.4-10.4); Monocytes # (auto) 0.57 K/uL (0.11-0.59); Monocytes % (auto) 8.3 %; Neutrophils % (auto) 65.8 %; Platelet Count 173 K/uL (130-400); RDW Coefficient of Variation 13.3 % (11.5-14.5); RDW Standard Deviation 46.2 fL (36.4-46.3); Red Blood Count 3.78 M/uL (4.2-5.4); White Blood Count 6.84 K/uL (4.8-10.8)
[2020-11-15 06:19] LABS: Calcium 8.9 mg/dl (8.5-10.1); Creatinine Clr Calc Pharmacy 67.1 ml/min; Est GFR (Non-African American) 56.9 ml/min; Potassium 4.7 mmol/L (3.5-5.1)
[2020-11-15] MEDS: metFORMIN HCL 500 MG TAB PO SCH ×2 (07:35→17:27)
[2020-11-15] MEDS: IRBESARTAN 150 MG TAB PO SCH (08:26)
[2020-11-15] MEDS: MAGNESIUM OXIDE 400 MG TAB PO SCH ×2 (08:26→20:44)
[2020-11-15] MEDS: METOPROLOL TARTRATE 50 MG TAB PO SCH ×2 (08:26→20:44)
[2020-11-15] MEDS: ATORVASTATIN 40 MG TAB PO SCH (08:27)
[2020-11-15] MEDS: POTASSIUM CHLORIDE CRTAB 20 MEQ TABCR PO SCH ×2 (08:27→20:44)
[2020-11-15] MEDS: DICLOFENAC SOD 1% GEL 100 GM TUBE EXT SCH ×2 (08:27→20:43)
[2020-11-15] MEDS: INSULIN ASPART 100 UNITS/ML 3 ML PEN SC SCH ×4 (08:32→20:59)
[2020-11-15] MEDS ORDERED: Influenza Vaccine-High Dose (Fluzone-HD) PF 65+ 0.7 ML SYR IM ONE (14:00)
--- NOTE | 2020-11-15 18:10 | Hospitalist Progress Note ---
Date of Service November 15, 2020 Assessment & Plan (1) Acute metabolic encephalopathy: Plan: Clara is a 70-year-old female with a past medical history of hypertension, incontinence, weakness, obesity class III BMI 4049, hyperlipidemia, diabetes with peripheral neuropathy, and poor balance who presented with altered mental status now improved and suspected due to toxic infectious metabolic encephalopathy versus drug-induced toxic encephalopathy worsened by underlying MARLENE Acute metabolic encephalopathy -Orientation greatly improved 11/13 11/09: Discussed case with daughter, reports her mom seemed confused between breakfast and lunch by the phone suspect is also having some waxing and waning delirium - 11/10: Attempted to reach family and by phone, unable to to get through and no machine to leave message -Diarrhea improved Improved and appetite improving. Pending placement[facility], anticipate bed available 11/16 or 11/17 - Suspect waxing and waning mental status with delirium, repeat UA negative, no leukocytosis. Delirium precautions, reorient frequently during day and prevent day night reversal (2) Dizziness: Plan: - Possible Toxic encephalopathy secondary to Bactrim therapy versus infectious encephalopathy with UTI - Patient came in with postural dizziness and decreased strength and ambulation. Improved No focal neurologic signs to prompt CT on admission. CT scan 10/30/2020 without acute findings PT/OT recommend rehab (3) Shoulder subluxation, left: Plan: - Chronic, shoulder dislocates in and out intermittently. Several months per pt - Pt seen as outpt, seen physical therapy and told may connect with an orthopedist electively - L shoulder RoM improves with scapular stabilization, L shoulder elevation limited at baseline. internal/external rotation mostly intact Ortho consulted. Recommend nonsurgical management, rehab at this time. May follow-up electively as outpatient for surgical evaluation if functionally limiting or pain develops. No acute intervention at this time. Appreciate recommendations. Discussed with patient and family. (4) UTI (urinary tract infection): Plan: - Treated for 5 days with Bactrim for pansensitive E. coli, stopped as dizziness is a side effect of the Bactrim (5) Diabetes mellitus type 2 in obese: Plan: Adequate glycemic control continuing Metformin 1 g twice daily Continue glucose checks AC/at bedtime, diabetic diet (6) Hypertension: Plan: Good BP control today Continue irbesartan and metoprolol. (7) DVT prophylaxis: Plan: SCDs and early ambulation Diet: Diabetic CODE STATUS: Full code (8) Left leg pain: Plan: Patient has left leg pain from her knee to her hip. X-ray shows advanced degenerative left hip and knee. will benefit from outpatient ortho folloup. Ortho also consulted for shoulder as noted above. Admission and Anticipated Discharge Date Admission Date: November 05, 2020 Subjective Doing well this morning. Intermittently confused, alert, oriented to name and place on exam, pleasant and follows commands. Denies pain, no pain in L shoulder. Pt reports ready to get out of the hospital, aware pending placement. Denies sx as below Review of Systems Review of Systems: Constitutional: Denies fever, chills, malaise Eyes: Denies double vision, vision change ENT: Denies ear pain, sore throat, sinus pain Cardiovascular: Denies Chest pain, chest pressure, palpitations, extremity swelling Respiratory: Denies shortness of breath, cough, sputum production, difficulty breathing Gastrointestinal: Denies abdominal pain, nausea, vomiting, constipation. Endorses BM incontinence x1 Genitourinary: Denies pain with urination, urinary urgency, urinary frequency Musculoskeletal: Denies focal weakness, muscle aches/pain, joint aches/pain. Denies L shoulder pain. Integumentary:Denies rash, lesions, bruising Neurological: Denies headache, numbness, tingling Physical Exam Physical Exam: General: Alert and oriented, pleasant, oriented to name/month/place today. NAD. Cooperative. HEENT: Atraumatic, normocephalic.Visual acuity and hearing grossly intact. Pulm: CTAB A&P. -wheezes, -rales, -rhonchi. Symmetrical chest rise. No increase work of breathing. No respiratory distress. Cardiac: RRR, -mrg. Radial pulses intact and symmetrical. Abdominal: Nontender, nondistended, soft. BS present. Extremities: Ankle dorsiflexion/plantar flexion and curb worker strength 5/5. Left arm in flexion. No pain in extremities. Sensation in fingertips intact. Radial pulses intact bilaterally. Results & Data Results & Data ([facility]) Vital Signs (Past 12 Hours) Vital Signs Temp Pulse Resp BP Pulse Ox 11/15/20 07:44 36.7 C 63 16 118/71 98 PG Care Time/CCT Total # of Minutes Spent Total Time Spent with Patient: Total time spent is greater than 50% in coordination of care (as documented) at patient's floor/unit and/or counseling p atient: Coding Level of Care Code 33211 Subseq Hosp Care Lvl 1 Diagnoses Acute metabolic encephalopathy G93.41 Dizziness R42 Shoulder subluxation, left S43.002A UTI (urinary tract infection) N39.0 Diabetes mellitus type 2 in obese E11.69; E66.9 Hypertension I10 DVT prophylaxis Z29.9 Left leg pain M79.605
[2020-11-16 06:34] LABS: Basophils # (auto) 0.04 K/uL (0-0.2); Basophils % (auto) 0.5 %; Eosinophils # (auto) 0.14 K/uL (0-0.5); Eosinophils % (auto) 1.6 %; Hematocrit (blood only) 38.8 % (37-47); Hemoglobin 13.2 g/dL (12.0-16.0); Immature Granulocytes # (auto) 0.01 K/uL (0.00-0.02); Immature Granulocytes % (auto) 0.1 %; Lymphocytes # (auto) 0.99 K/uL (1.2-3.4); Lymphocytes % (auto) 11.3 %; Mean Corpuscular Hemoglobin 32.9 pg (25-34); Mean Corpuscular Volume 96.8 fL (80-100); Mean Platelet Volume 11.7 fL (7.4-10.4); Monocytes # (auto) 0.42 K/uL (0.11-0.59); Monocytes % (auto) 4.8 %; Neutrophils # (auto) 7.18 K/uL (1.4-6.5); Neutrophils % (auto) 81.7 %; Platelet Count 165 K/uL (130-400); RDW Coefficient of Variation 13.2 % (11.5-14.5); RDW Standard Deviation 46.4 fL (36.4-46.3); Red Blood Count 4.01 M/uL (4.2-5.4); White Blood Count 8.78 K/uL (4.8-10.8)
[2020-11-16 07:07] LABS: BUN Creatinine Ratio 30.8 (10-20); Calcium 9.1 mg/dl (8.5-10.1); Creatinine Clr Calc Pharmacy 65.1 ml/min; Est GFR (African American) 63.6 ml/min; Est GFR (Non-African American) 54.9 ml/min; Potassium 4.3 mmol/L (3.5-5.1)
[2020-11-16] MEDS: metFORMIN HCL 500 MG TAB PO SCH ×2 (07:17→17:30)
[2020-11-16] MEDS: INSULIN ASPART 100 UNITS/ML 3 ML PEN SC SCH ×4 (08:26→23:27)
[2020-11-16] MEDS: ATORVASTATIN 40 MG TAB PO SCH (09:52)
[2020-11-16] MEDS: MAGNESIUM OXIDE 400 MG TAB PO SCH ×2 (09:52→20:34)
[2020-11-16] MEDS: IRBESARTAN 150 MG TAB PO SCH (09:52)
[2020-11-16] MEDS: POTASSIUM CHLORIDE CRTAB 20 MEQ TABCR PO SCH ×2 (09:52→20:35)
[2020-11-16] MEDS: METOPROLOL TARTRATE 50 MG TAB PO SCH ×2 (09:52→20:34)
[2020-11-16] MEDS: DICLOFENAC SOD 1% GEL 100 GM TUBE EXT SCH ×2 (09:53→20:35)
--- NOTE | 2020-11-16 14:31 | Discharge Summary ---
Date of Service November 16, 2020 Admission HPI Per Admitting Provider 69-year-old female brought into the ED with progressive weakness at home. She was seen in emergency department approximately 5 days ago treated for urinary tract infection with Bactrim. She represents with continued weakness unable to get out of chair plus minus some vertigo symptoms. Initially the family had wished for her to have rehab evaluation. However she is found to be too weak and also has a looks to be chronically dislocated left shoulder. Her urinalysis today shows negative nitrates negative leukocyte esterase, her urine did grow E. coli which is pansensitive on October 30. Patient describes her dizziness as a presyncopal feeling definitely not vertiginous feeling. However it has been happening at rest when she is sitting still not with position changes. She has had this presyncopal feeling in her youth. Of note she is slightly bradycardic with her beta-jacob and this may be related to that. We are reducing doses and checking orthostatics in the morning Admission Exam Per Admitting Provider The patient appeared well nourished and normally developed. Vital signs as documented. Head exam is normocephalic atraumatic Neck is without JVD, thyromegaly, or carotid bruits. Lungs are clear to auscultation, no focal loss of breath sounds Cardiac exam, Rhythm is regular.. No murmurs, rubs or gallops. Abdominal exam reveals normal bowel sounds, soft non tender, no masses Patient has crepitance in her left shoulder however I can externally rotated and internally rotated she does have some pain when she lifts it above 90 degrees her knees do not have any effusions on them there are small abrasions. Extremities are nonedematous and both pedal pulses are present Neurologic exam is alert and oriented, no focal loss of strength or sensation she can lift her legs off the bed but she is very weak this may have to do with her morbid obesity BMI 41 Skin is without bruises or rashes Psychologically is without concerns for anxiety or depression Principal Diagnosis Toxic versus acute metabolic encephalopathy Discharge Exam General: Alert and oriented, pleasant, oriented to name/month/place/year today. NAD. Cooperative. HEENT: Atraumatic, normocephalic.Visual acuity and hearing grossly intact. Pulm: CTAB A&P. -wheezes, -rales, -rhonchi. Symmetrical chest rise. No increase work of breathing. No respiratory distress. Cardiac: RRR, -mrg. Radial pulses intact and symmetrical. Abdominal: Nontender, nondistended, soft. BS present. 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 Left shoulder internal/external rotation grossly intact, patient with inability to elevate left arm. Patient able to elevate arm with stabilization of shoulder blade and shoulder with examiner palm, reduction and displacement felt during exam with no pain to patient. Sensation in fingertips intact. Radial pulses intact bilaterally. Right shoulder range of motion including flexion, extension, internal rotation, external rotation intact with 5/5 strength. Discharge Data Allergies Allergy/AdvReac Type Severity Reaction Status Date / Time No Known Drug Allergies Allergy Verified 06/10/20 11:42 sulfamethoxazole AdvReac Metabolic Verified 11/16/20 14:24 [From Bactrim] Encephalopathy trimethoprim [From Bactrim] AdvReac Metabolic Verified 11/16/20 14:24 Encephalopathy Consultations 11/04/20 13:27 ED Decision to Admit Stat 11/13/20 08:40 Consult Orthopedic Surgery Routine Hospital Course (1) Acute metabolic encephalopathy: Clara is a 70-year-old female with a past medical history of hypertension, incontinence, weakness, obesity class III BMI 4049, hyperlipidemia, diabetes with peripheral neuropathy, and poor balance who presented with altered mental status now improved and suspected due to toxic infectious metabolic encephalopathy versus drug-induced toxic encephalopathy worsened by underlying MARLENE Acute metabolic encephalopathy -Orientation greatly improved 11/13. Suspect due to toxic medication effect of Bactrim versus UTI. Resolved by time of discharge 11/09: Discussed case with daughter, reports her mom seemed confused between breakfast and lunch by the phone suspect is also having some waxing and waning delirium - 11/10: Attempted to reach family and by phone, unable to to get through and no machine to leave message -Diarrhea improved -Patient continued to have waxing and waning mental status consistent with delirium, no underlying persistent encephalopathy was appreciated (2) Dizziness: - Possible Toxic encephalopathy secondary to Bactrim therapy versus infectious encephalopathy with UTI - Patient came in with postural dizziness and decreased strength and ambulation. Improved No focal neurologic signs to prompt CT on admission. CT scan 10/30/2020 without acute findings Discharged to inpatient rehab for further care (3) Shoulder subluxation, left: - Chronic, shoulder dislocates in and out intermittently. Several months per pt - Pt seen as outpt, seen physical therapy and told may connect with an orthopedist electively - L shoulder RoM improves with scapular stabilization, L shoulder elevation limited at baseline. internal/external rotation mostly intact Ortho consulted. Recommend nonsurgical management, rehab at this time. May follow-up electively as outpatient for surgical evaluation if functionally limiting or pain develops. No acute intervention at this time. Appreciate recommendations. Discussed with patient and family. (4) UTI (urinary tract infection): - Treated for 5 days with Bactrim for pansensitive E. coli, stopped as dizziness is a side effect of the Bactrim (5) Diabetes mellitus type 2 in obese: Adequate glycemic control continuing Metformin 1 g twice daily Continue glucose checks AC/at bedtime, diabetic diet (6) Hypertension: Good BP control today Continue irbesartan and metoprolol. (7) DVT prophylaxis: SCDs and early ambulation Diet: Diabetic CODE STATUS: Full code (8) Left leg pain: Patient has left leg pain from her knee to her hip. X-ray shows advanced degenerative left hip and knee. will benefit from outpatient ortho folloup. Ortho also consulted for shoulder as noted above. Total Time Total Time Spent Total Time Spent (In Minutes): Total time spent preparing discharge day of discharge approximately 25 minutes including direct patient care, documentation, coordination of care, and review of labs and images. Discharge Plan Discharge Items Patient Disposition: Transfer [facility] Reason For Visit: WEAKNESS Discharge Diagnosis: Acute metabolic encephalopathy 2/2 UTI versus Bactrim Weakness Condition on Discharge: Fair Activity: Per Instructions section Non-emergency contact: Primary Care Provider Call non-emergency contact if: you have any medication questions, your symptoms worsen and you have a fever Follow-up/Referrals: PCP,NO [Physician] - Diet: Regular Addtl Attending Provider Instructions: You are seen in the hospital for confusion thought to be due to either UTI or reaction to a medication, Bactrim. Your UTI was adequately treated with Bactrim, this medication was discontinued and listed as a potential allergy. You clinically improved, although experience some waxing and waning delirium while in the hospital. It was recommended that you have acute rehab after discharge from the hospital, you are being discharged to [facility] for rehab. You have a chronically dislocated left shoulder. This was evaluated via x-ray and discussed with orthopedics. It was recommended that you pursue nonoperative management at this time and rehab which may improve the function of the sh oulder. If your shoulder begins to cause persistent pain, limiting symptoms, or you wish to pursue surgical evaluation this may be readdressed on elective basis, however surgery was not recommended at time of inpatient management it was recommended that you become stronger before pursuing additional treatment. You will have a follow-up appointment with the inpatient rehab physician. Is recommended you have a follow-up appointment with their physician within 1 week. If you develop any new or worsening symptoms including fever, chills, sweats, chest pain, chest pressure, difficulty breathing, uncontrolled nausea/vomiting, rash, wheezing, passing out or nearly passing out, bleeding, black/bloody bowel movements, or other new or concerning symptoms please call the [facility] primary care physician, or call 911 for re-evaluation in the emergency department if you are very concerned. Pending Studies at Discharge: No Stand-Alone Forms: My [facility] Skilled Items Patient informed of condition?: Yes DNR: No Discharge Level of Care: Acute rehab Communicable Disease: No Discharge Prognosis: Stable Lines: None Urinary Catheter: No Medications and DC Order Prescriptions: Continued atorvastatin 80 mg tablet 80 mg PO DAILY Qty: 90 RF: 1 metoprolol tartrate 100 mg tablet 100 mg PO BID Qty: 180 RF: 1 irbesartan 150 mg tablet 150 mg PO DAILY Qty: 90 RF: 1 metformin 1,000 mg tablet 1,000 mg PO BID Qty: 180 RF: 1 Discontinued sulfamethoxazole-trimethoprim [Bactrim DS] 800-160 mg tablet 1 tab PO Q12H Qty: 14 RF: 0 Discharge Orders: Discharge Order (Routine); Ordered 11/17/20 Ordered By: Kd De Souza/Other Patient Handouts: A1C, Managing Type 2 Diabetes Admission Data Admit Date/Time: 11/05/20 14:57 Attending Provider: Kd Lima Admit Provider: Tres Catalan Primary Care Provider: Nila Salazar Other Providers: [facility] ; Christel Landrum [facility] ; [place],[facility] ; Eduard Paniagua ; Kd Lima Other Interventions: Discharge Summary Assessment (RN) Last Done: 11/17/20 08:07 Coding Level of Care Code D/C DAY MANAGEMENT <30 MINS Diagnoses Acute metabolic encephalopathy G93.41 Dizziness R42 Shoulder subluxation, left S43.002A UTI (urinary tract infection) N39.0 Diabetes mellitus type 2 in obese E11.69; E66.9 Hypertension I10 DVT prophylaxis Z29.9 Left leg pain M79.605
--- NOTE | 2020-11-16 16:01 | Hospitalist Progress Note ---
Date of Service November 16, 2020 Assessment & Plan (1) Acute metabolic encephalopathy: Plan: Clara is a 70-year-old female with a past medical history of hypertension, incontinence, weakness, obesity class III BMI 4049, hyperlipidemia, diabetes with peripheral neuropathy, and poor balance who presented with altered mental status now improved and suspected due to toxic infectious metabolic encephalopathy versus drug-induced toxic encephalopathy worsened by underlying MARLENE Patient had discharge completed 11/16, but was unable to arrange transport to rehab until morning of 11/17 discharge removed, anticipate dispo to rehab tomorrow morning. Acute metabolic encephalopathy -Orientation greatly improved 11/13. Suspect due to toxic medication effect of Bactrim versus UTI. Resolved by time of discharge 11/09: Discussed case with daughter, reports her mom seemed confused between breakfast and lunch by the phone suspect is also having some waxing and waning delirium - 11/10: Attempted to reach family and by phone, unable to to get through and no machine to leave message -Diarrhea improved -Patient continued to have waxing and waning mental status consistent with delirium, no underlying persistent encephalopathy was appreciated (2) Dizziness: Plan: - Possible Toxic encephalopathy secondary to Bactrim therapy versus infectious encephalopathy with UTI - Patient came in with postural dizziness and decreased strength and ambulation. Improved No focal neurologic signs to prompt CT on admission. CT scan 10/30/2020 without acute findings Discharged to inpatient rehab for further care (3) Shoulder subluxation, left: Plan: - Chronic, shoulder dislocates in and out intermittently. Several months per pt - Pt seen as outpt, seen physical therapy and told may connect with an orthopedist electively - L shoulder RoM improves with scapular stabilization, L shoulder elevation limited at baseline. internal/external rotation mostly intact Ortho consulted. Recommend nonsurgical management, rehab at this time. May follow-up electively as outpatient for surgical evaluation if functionally limiting or pain develops. No acute intervention at this time. Appreciate recommendations. Discussed with patient and family. (4) UTI (urinary tract infection): Plan: - Treated for 5 days with Bactrim for pansensitive E. coli, stopped as dizziness is a side effect of the Bactrim (5) Diabetes mellitus type 2 in obese: Plan: Adequate glycemic control continuing Metformin 1 g twice daily Continue glucose checks AC/at bedtime, diabetic diet (6) Hypertension: Plan: Good BP control today Continue irbesartan and metoprolol. (7) DVT prophylaxis: Plan: SCDs and early ambulation Diet: Diabetic CODE STATUS: Full code (8) Left leg pain: Plan: Patient has left leg pain from her knee to her hip. X-ray shows advanced degenerative left hip and knee. will benefit from outpatient ortho folloup. Ortho also consulted for shoulder as noted above. Admission and Anticipated Discharge Date Admission Date: November 05, 2020 Subjective Patient is seen at the bedside this morning. She reports she feels well, no questions or concerns. Continues to have waxing/waning delirium per nursing staff. Patient initially set with discharge summary with dispo to rehab, however transport was unable to be obtained until tomorrow morning. Review of Systems Review of Systems: Intermittently confused today, oriented to name/place. Endorses left shoulder weakness, otherwise 10 point review of systems negative today. Physical Exam Physical Exam: General: Alert and oriented, pleasant, oriented to name/month/place/year today. NAD. Cooperative. HEENT: Atraumatic, normocephalic.Visual acuity and hearing grossly intact. Pulm: CTAB A&P. -wheezes, -rales, -rhonchi. Symmetrical chest rise. No increase work of breathing. No respiratory distress. Cardiac: RRR, -mrg. Radial pulses intact and symmetrical. Abdominal: Nontender, nondistended, soft. BS present. 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 Left shoulder internal/external rotation grossly intact, patient with inability to elevate left arm. Patient able to elevate arm with stabilization of shoulder blade and shoulder with examiner palm, reduction and displacement felt during exam with no pain to patient. Sensation in fingertips intact. Radial pulses intact bilaterally. Right shoulder range of motion including flexion, extension, internal rotation, external rotation intact with 5/5 strength. Results & Data Results & Data ([facility]) Vital Signs (Past 12 Hours) Vital Signs Temp Pulse Resp BP BP Pulse Ox 11/16/20 14:53 36.7 C 77 16 151/85 H 100 11/16/20 07:16 85 164/94 H 11/16/20 07:07 37 C 85 16 173/83 H 99 PG Care Time/CCT Total # of Minutes Spent Total Time Spent with Patient: Total time spent is greater than 50% in coordination of care (as documented) at patient's floor/unit and/or counseling patient: Coding Level of Care Code 95699 Subseq Hosp Care Lvl 1 Diagnoses Acute metabolic encephalopathy G93.41 Dizziness R42 Shoulder subluxation, left S43.002A UTI (urinary tract infection) N39.0 Diabetes mellitus type 2 in obese E11.69; E66.9 Hypertension I10 DVT prophylaxis Z29.9 Left leg pain M79.605
[2020-11-17 06:52] LABS: BUN Creatinine Ratio 29.5 (10-20); Calcium 9.3 mg/dl (8.5-10.1); Creatinine Clr Calc Pharmacy 65.8 ml/min; Est GFR (African American) 64.4 ml/min; Est GFR (Non-African American) 55.6 ml/min; Potassium 4.6 mmol/L (3.5-5.1)
[2020-11-17] MEDS: metFORMIN HCL 500 MG TAB PO SCH (07:36)
[2020-11-17] MEDS: ATORVASTATIN 40 MG TAB PO SCH (07:36)
[2020-11-17] MEDS: POTASSIUM CHLORIDE CRTAB 20 MEQ TABCR PO SCH (07:37)
[2020-11-17] MEDS: IRBESARTAN 150 MG TAB PO SCH (07:37)
[2020-11-17] MEDS: MAGNESIUM OXIDE 400 MG TAB PO SCH (07:37)
[2020-11-17] MEDS: METOPROLOL TARTRATE 50 MG TAB PO SCH (07:37)
[2020-11-17] MEDS: DICLOFENAC SOD 1% GEL 100 GM TUBE EXT SCH (07:38)
[2020-11-17] MEDS: INSULIN ASPART 100 UNITS/ML 3 ML PEN SC SCH (07:57)
--- NOTE | 2020-11-17 16:55 | Discharge Summary ---
Date of Service November 17, 2020 Admission HPI Per Admitting Provider 69-year-old female brought into the ED with progressive weakness at home. She was seen in emergency department approximately 5 days ago treated for urinary tract infection with Bactrim. She represents with continued weakness unable to get out of chair plus minus some vertigo symptoms. Initially the family had wished for her to have rehab evaluation. However she is found to be too weak and also has a looks to be chronically dislocated left shoulder. Her urinalysis today shows negative nitrates negative leukocyte esterase, her urine did grow E. coli which is pansensitive on October 30. Patient describes her dizziness as a presyncopal feeling definitely not vertiginous feeling. However it has been happening at rest when she is sitting still not with position changes. She has had this presyncopal feeling in her youth. Of note she is slightly bradycardic with her beta-jacob and this may be related to that. We are reducing doses and checking orthostatics in the morning Principal Diagnosis Altered mental status Discharge Data Allergies Allergy/AdvReac Type Severity Reaction Status Date / Time No Known Drug Allergies Allergy Verified 06/10/20 11:42 sulfamethoxazole AdvReac Metabolic Verified 11/16/20 14:24 [From Bactrim] Encephalopathy trimethoprim [From Bactrim] AdvReac Metabolic Verified 11/16/20 14:24 Encephalopathy Consultations 11/04/20 13:27 ED Decision to Admit Stat 11/13/20 08:40 Consult Orthopedic Surgery Routine Hospital Course (1) Acute metabolic encephalopathy: Clara is a 70-year-old female with a past medical history of hypertension, incontinence, weakness, obesity class III BMI 4049, hyperlipidemia, diabetes with peripheral neuropathy, and poor balance who presented with altered mental status now improved and suspected due to toxic infectious metabolic encephalopathy versus drug-induced toxic encephalopathy worsened by underlying MARLENE Patient had discharge completed 11/16, but was unable to arrange transport to rehab until morning of 11/17 discharge removed, anticipate dispo to rehab tomorrow morning. Acute metabolic encephalopathy -Orientation greatly improved 11/13. Suspect due to toxic medication effect of Bactrim versus UTI. Resolved by time of discharge 11/09: Discussed case with daughter, reports her mom seemed confused between br eakfast and lunch by the phone suspect is also having some waxing and waning delirium - 11/10: Attempted to reach family and by phone, unable to to get through and no machine to leave message -Diarrhea improved -Patient continued to have waxing and waning mental status consistent with delirium, no underlying persistent encephalopathy was appreciated (Summary above from Dr. Yanez. Transport picked up patient prior to my ability to see her. Please do not bill for today's note.) (2) Dizziness: - Possible Toxic encephalopathy secondary to Bactrim therapy versus infectious encephalopathy with UTI - Patient came in with postural dizziness and decreased strength and ambulation. Improved No focal neurologic signs to prompt CT on admission. CT scan 10/30/2020 without acute findings Discharged to inpatient rehab for further care (3) Shoulder subluxation, left: - Chronic, shoulder dislocates in and out intermittently. Several months per pt - Pt seen as outpt, seen physical therapy and told may connect with an orthopedist electively - L shoulder RoM improves with scapular stabilization, L shoulder elevation limited at baseline. internal/external rotation mostly intact Ortho consulted. Recommend nonsurgical management, rehab at this time. May follow-up electively as outpatient for surgical evaluation if functionally limiting or pain develops. No acute intervention at this time. Appreciate recommendations. Discussed with patient and family. (4) UTI (urinary tract infection): - Treated for 5 days with Bactrim for pansensitive E. coli, stopped as dizziness is a side effect of the Bactrim (5) Diabetes mellitus type 2 in obese: Adequate glycemic control continuing Metformin 1 g twice daily Continue glucose checks AC/at bedtime, diabetic diet (6) Hypertension: Good BP control today Continue irbesartan and metoprolol. (7) DVT prophylaxis: SCDs and early ambulation Diet: Diabetic CODE STATUS: Full code (8) Left leg pain: Patient has left leg pain from her knee to her hip. X-ray shows advanced degenerative left hip and knee. will benefit from outpatient ortho folloup. Ortho also consulted for shoulder as noted above. Total Time Total Time Spent Total Time Spent (In Minutes): 0 Discharge Plan Discharge Items Patient Disposition: Transfer Alf Fac Reason For Visit: WEAKNESS Discharge Diagnosis: Acute metabolic encephalopathy 2/2 UTI versus Bactrim Weakness Condition on Discharge: Fair Activity: Per Instructions section Non-emergency contact: Primary Care Provider Call non-emergency contact if: you have any medication questions, your symptoms worsen and you have a fever Follow-up/Referrals: PCP,NO [Physician] - Diet: Regular Addtl Attending Provider Instructions: You are seen in the hospital for confusion thought to be due to either UTI or reaction to a medication, Bactrim. Your UTI was adequately treated with Bactrim, this medication was discontinued and listed as a potential allergy. You clinically improved, although experience some waxing and waning delirium while in the hospital. It was recommended that you have acute rehab after discharge from the hospital, you are being discharged to [facility] for rehab. You have a chronically dislocated left shoulder. This was evaluated via x-ray and discussed with orthopedics. It was recommended that you pursue nonoperative management at this time and rehab which may improve the function of the shoulder. If your shoulder begins to cause persistent pain, limiting symptoms, or you wish to pursue surgical evaluation this may be readdressed on elective basis, however surgery was not recommended at time of inpatient management it was recommended that you become stronger before pursuing additional treatment. You will have a follow-up appointment with the inpatient rehab physician. Is recommended you have a follow-up appointment with their physician within 1 week. If you develop any new or worsening symptoms including fever, chills, sweats, chest pain, chest pressure, difficulty breathing, uncontrolled nausea/vomiting, rash, wheezing, passing out or nearly passing out, bleeding, black/bloody bowel movements, or other new or concerning symptoms please call the [place] care primary care physician, or call 911 for re-evaluation in the emergency department if you are very concerned. Pending Studies at Discharge: No Stand-Alone Forms: My [facility] Skilled Items Patient informed of condition?: Yes DNR: No Discharge Level of Care: Acute rehab Communicable Disease: No Discharge Prognosis: Stable Lines: None Urinary Catheter: No Medications and DC Order Prescriptions: Continued atorvastatin 80 mg tablet 80 mg PO DAILY Qty: 90 RF: 1 metoprolol tartrate 100 mg tablet 100 mg PO BID Qty: 180 RF: 1 irbesartan 150 mg tablet 150 mg PO DAILY Qty: 90 RF: 1 metformin 1,000 mg tablet 1,000 mg PO BID Qty: 180 RF: 1 Discontinued sulfamethoxazole-trimethoprim [Bactrim DS] 800-160 mg tablet 1 tab PO Q12H Qty: 14 RF: 0 Discharge Orders: Discharge Order (Routine); Ordered 11/17/20 Ordered By: Kd De Souza/Other Patient Handouts: A1C, Managing Type 2 Diabetes Admission Data Admit Date/Time: 11/05/20 14:57 Attending Provider: Kd Lima Admit Provider: Tres Catalan Primary Care Provider: Nila Salazar Other Providers: [facility] ; Christel Landrum at [place] ; [place] ; Eduard Paniagua ; Kd Lima Other Interventions: Discharge Summary Assessment (RN) Last Done: 11/17/20 08:07 Coding Level of Care Code None Diagnoses Acute metabolic encephalopathy G93.41 Dizziness R42 Shoulder subluxation, left S43.002A UTI (urinary tract infection) N39.0 Diabetes mellitus type 2 in obese E11.69; E66.9 Hypertension I10 DVT prophylaxis Z29.9 Left leg pain M79.605
== END 2020-11-17 08:56 | DRG 92 ==
LOC: EDINP 08:56 → ED 08:56 → SUATTDRO 14:36 → 2N 16:47 → SUATTDRO 11-05 14:57 → 3E 11-06 21:30